=== PATIENT | female | born 1965 | race Caucasian/White ===

== ENCOUNTER → 2016-02-23 | Outpatient (REF) | payer OTHER ==
[2016-02-23 08:22] LABS: ALBUMIN 3.5 GM/DL (3.2-5.2); ALBUMIN/GLOBULIN RATIO 1.13 (1.00-1.93); ALKALINE PHOSPHATASE 131 U/L (45-117); ALT/SGPT 68 U/L (12-78); ANION GAP 7 MEQ/L (8-16); AST/SGOT 23 U/L (15-37); BILIRUBIN,TOTAL 0.5 MG/DL (0.2-1.0); BLOOD UREA NITROGEN 18 MG/DL (7-18); CALCIUM LEVEL 8.5 MG/DL (8.5-10.1); CARBON DIOXIDE LEVEL 28 MEQ/L (21-32); CHLORIDE LEVEL 105 MEQ/L (98-107); CREATININE FOR GFR 0.47 MG/DL (0.55-1.02); GLOMERULAR FILTRATION RATE > 60.0 (>51); GLUCOSE, FASTING 89 MG/DL (70-105); POTASSIUM SERUM 4.2 MEQ/L (3.5-5.1); SODIUM LEVEL 140 MEQ/L (136-145); TOTAL PROTEIN 6.6 GM/DL (6.4-8.2)
[2016-02-23 09:16] LABS: WHITE BLOOD COUNT 6.8 K/mm3 (4.0-10.0)
[2016-02-23 09:17] LABS: BASO # 0.1 K/mm3 (0.0-0.2); BASO % 1.4 % (0.0-1.0); EOS # 0.1 K/mm3 (0.0-0.50); LARGE UNSTAINED CELL # 0.2 K/mm3 (0.0-0.4); LARGE UNSTAINED CELL % 2.2 % (0.0-4.0); LYMPH # 2.7 K/mm3 (1.5-4.5); LYMPH % 39.3 % (24.0-44.0); MEAN CORPUSCULAR HGB CONC 32.9 g/dl (32.0-36.5); MONO # 0.7 K/mm3 (0.0-0.8); MONO % 10.2 % (0.0-5.0); NEUTROPHILS # 3.1 K/mm3 (1.8-7.7); NEUTROPHILS % 44.9 % (36.0-66.0); PLATELET COUNT, AUTOMATED 141 k/mm3 (150-450); RED CELL DISTRIBUTION WIDTH 13.8 % (11.5-14.5)
[2016-02-23 11:15] LABS: ERYTHROCYTE SEDIMENTATION RATE 16 mm/hr (0-30)
== END ==
LOC: M LAB REF 08:03
PROVIDERS: ATTEND Internal Medicine Infectious Disease
DX: A41.9 Sepsis, unspecified organism (principal)

== ENCOUNTER → 2016-03-01 | Outpatient (REF) | payer OTHER ==
[2016-03-01 10:46] LABS: BASO % 0.3 % (0.0-1.0); EOS # 0.2 K/mm3 (0.0-0.50); EOS % 3.3 % (0.0-3.0); LARGE UNSTAINED CELL # 0.2 K/mm3 (0.0-0.4); LARGE UNSTAINED CELL % 3.3 % (0.0-4.0); LYMPH # 1.8 K/mm3 (1.5-4.5); LYMPH % 34.2 % (24.0-44.0); MEAN CORPUSCULAR HEMOGLOBIN 29.7 pg (27.0-33.0); MEAN CORPUSCULAR HGB CONC 34.3 g/dl (32.0-36.5); MEAN CORPUSCULAR VOLUME 86.6 fl (80.0-96.0); MONO # 0.6 K/mm3 (0.0-0.8); MONO % 12.3 % (0.0-5.0); NEUTROPHILS # 2.4 K/mm3 (1.8-7.7); NEUTROPHILS % 46.7 % (36.0-66.0); PLATELET COUNT, AUTOMATED 122 k/mm3 (150-450); RED CELL DISTRIBUTION WIDTH 12.7 % (11.5-14.5); WHITE BLOOD COUNT 5.2 K/mm3 (4.0-10.0)
[2016-03-01 11:39] LABS: ERYTHROCYTE SEDIMENTATION RATE 29 mm/hr (0-30)
[2016-03-01 11:55] LABS: ALBUMIN 3.3 GM/DL (3.2-5.2); ALBUMIN/GLOBULIN RATIO 1.14 (1.00-1.93); ALKALINE PHOSPHATASE 123 U/L (45-117); ALT/SGPT 59 U/L (12-78); ANION GAP 8 MEQ/L (8-16); AST/SGOT 35 U/L (15-37); BILIRUBIN,TOTAL 0.4 MG/DL (0.2-1.0); BLOOD UREA NITROGEN 15 MG/DL (7-18); CALCIUM LEVEL 8.8 MG/DL (8.5-10.1); CARBON DIOXIDE LEVEL 29 MEQ/L (21-32); CHLORIDE LEVEL 105 MEQ/L (98-107); CREATININE FOR GFR 0.47 MG/DL (0.55-1.02); GLOMERULAR FILTRATION RATE > 60.0 (>51); GLUCOSE, FASTING 93 MG/DL (70-105); POTASSIUM SERUM 3.9 MEQ/L (3.5-5.1); SODIUM LEVEL 142 MEQ/L (136-145); TOTAL PROTEIN 6.2 GM/DL (6.4-8.2)
== END ==
LOC: M LAB REF 10:35
PROVIDERS: ATTEND Internal Medicine
DX: D83.9 Common variable immunodeficiency, unspecified (principal); Z79.2 Long term (current) use of antibiotics; M32.9 Systemic lupus erythematosus, unspecified

== ENCOUNTER → 2016-03-05 | Outpatient (REF) | payer OTHER ==
[2016-03-05 12:19] LABS: BASO # 0.1 K/mm3 (0.0-0.2); BASO % 1.1 % (0.0-1.0); EOS # 0.2 K/mm3 (0.0-0.50); EOS % 2.9 % (0.0-3.0); LARGE UNSTAINED CELL # 0.1 K/mm3 (0.0-0.4); LARGE UNSTAINED CELL % 1.8 % (0.0-4.0); LYMPH # 1.5 K/mm3 (1.5-4.5); LYMPH % 20.5 % (24.0-44.0); MEAN CORPUSCULAR HEMOGLOBIN 28.8 pg (27.0-33.0); MEAN CORPUSCULAR VOLUME 87.4 fl (80.0-96.0); MONO # 0.7 K/mm3 (0.0-0.8); MONO % 10.7 % (0.0-5.0); NEUTROPHILS # 4.2 K/mm3 (1.8-7.7); PLATELET COUNT, AUTOMATED 143 k/mm3 (150-450); RED CELL DISTRIBUTION WIDTH 13.6 % (11.5-14.5); WHITE BLOOD COUNT 6.6 K/mm3 (4.0-10.0)
[2016-03-05 12:42] LABS: ANION GAP 8 MEQ/L (8-16); BLOOD UREA NITROGEN 14 MG/DL (7-18); CALCIUM LEVEL 8.9 MG/DL (8.5-10.1); CARBON DIOXIDE LEVEL 27 MEQ/L (21-32); CHLORIDE LEVEL 107 MEQ/L (98-107); CREATININE FOR GFR 0.46 MG/DL (0.55-1.02); GLOMERULAR FILTRATION RATE > 60.0 (>51); GLUCOSE, FASTING 80 MG/DL (70-105); SODIUM LEVEL 142 MEQ/L (136-145)
[2016-03-05 13:33] LABS: ERYTHROCYTE SEDIMENTATION RATE 28 mm/hr (0-30)
== END ==
LOC: M LAB REF 11:47
PROVIDERS: ATTEND Internal Medicine Infectious Disease
DX: M86.18 Other acute osteomyelitis, other site (principal)

== ENCOUNTER → 2016-03-05 | Outpatient (CLI) | payer OTHER ==
--- NOTE | 2016-03-05 15:02 | REP ---
RIGHT STERNOCLAVICULAR JOINT ULTRASOUND: Real-time sonographic evaluation of the right sternoclavicular joint performed. Comparison made with prior study of 01/07/2016. There is no change in the somewhat complex fluid at the right sternoclavicular joint. The amount of fluid appears unchanged. IMPRESSION: No change in fluid within the right sternoclavicular joint compared to the prior exam of 01/07/2016. Signed by Elliott Milligan MD 03/05/2016 04:29 P
== END ==
LOC: M RAD 13:40
PROVIDERS: ATTEND Internal Medicine Infectious Disease
DX: M86.9 Osteomyelitis, unspecified (principal)

== ENCOUNTER → 2016-03-11 | Outpatient (CLI) | payer OTHER ==
[~2016-03-11] MED LIST: ALBU17IN2 INH; ARMO90TA PO; BENA25CA4 PO; CALC1TAB21 PO; CELE-19 PO; COLC1TAB5 PO; DALI1TAB2 PO; LEVA12INH INH; LIDOCAINE 1% MDV 20ML VIAL As Ordered ONE; METH8TAB4 PO; MYCO1TAB2 PO; PANT40TA2 PO; PLAQUENIL PO; PROBCAP4 PO; PROP1TAB29 PO; SIME1CAP PO; SUMA50TA2 PO; VANC10005 IV; VITA200016 PO; ZOFR20TA PO; ZYRT10CA PO; [UNRECOGNIZED DRUG - CODE] SC; [UNRECOGNIZED DRUG - OTHER] PO
--- NOTE | 2016-03-11 18:43 | REP ---
ULTRASOUND GUIDED RIGHT STERNOCLAVICULAR JOINT ASPIRATION: The procedure was performed under the direct supervision of Dr. Guevara. The patient has a history of somewhat complex fluid at the right sternoclavicular joint seen on a previous ultrasound dated 03/05/2016. The risks and benefits of the procedure were explained to the patient and informed consent was obtained. The right sternoclavicular joints was localized using ultrasound guidance. The skin was prepped and draped in a sterile fashion. 1% Xylocaine was used as a local anesthetic. Using ultrasound guidance an #18-gauge needle was inserted and then advanced into the joint. Only a scant amount of aspirate was obtained and sent to the lab. The patient tolerated the procedure well and there were no immediate complications. After the appropriate amount of monitored convalesce the patient was discharged from the department. Reviewed by JOAO Riley 03/12/2016 01:49 PEdited and Signed by Porfirio Guevara MD 03/12/2016 07:22 P
== END ==
LOC: M RADPRO 12:27
PROVIDERS: ATTEND Internal Medicine Infectious Disease
DX: M86.18 Other acute osteomyelitis, other site (principal); Z88.1 Allergy status to other antibiotic agents; Z88.5 Allergy status to narcotic agent; Z79.51 Long term (current) use of inhaled steroids; Z79.899 Other long term (current) drug therapy

== ENCOUNTER → 2016-03-11 | Outpatient (REF) | payer OTHER ==
[~2016-03-11] MED LIST changes: -LIDOCAINE 1% MDV 20ML VIAL As Ordered ONE
[2016-03-11 10:08] LABS: BASO % 0.4 % (0.0-1.0); EOS # 0.2 K/mm3 (0.0-0.50); EOS % 2.5 % (0.0-3.0); LARGE UNSTAINED CELL # 0.1 K/mm3 (0.0-0.4); LARGE UNSTAINED CELL % 2.3 % (0.0-4.0); LYMPH # 1.1 K/mm3 (1.5-4.5); LYMPH % 17.9 % (24.0-44.0); MEAN CORPUSCULAR HGB CONC 32.6 g/dl (32.0-36.5); MEAN CORPUSCULAR VOLUME 88.7 fl (80.0-96.0); MONO # 0.6 K/mm3 (0.0-0.8); MONO % 10.1 % (0.0-5.0); NEUTROPHILS # 4.2 K/mm3 (1.8-7.7); NEUTROPHILS % 66.8 % (36.0-66.0); PLATELET COUNT, AUTOMATED 115 k/mm3 (150-450); RED CELL DISTRIBUTION WIDTH 12.5 % (11.5-14.5); WHITE BLOOD COUNT 6.2 K/mm3 (4.0-10.0)
[2016-03-11 10:31] LABS: ANION GAP 10 MEQ/L (8-16); BLOOD UREA NITROGEN 13 MG/DL (7-18); CALCIUM LEVEL 8.5 MG/DL (8.5-10.1); CARBON DIOXIDE LEVEL 29 MEQ/L (21-32); CHLORIDE LEVEL 105 MEQ/L (98-107); CREATININE FOR GFR 0.61 MG/DL (0.55-1.02); GLOMERULAR FILTRATION RATE > 60.0 (>51); GLUCOSE, FASTING 92 MG/DL (70-105); POTASSIUM SERUM 3.8 MEQ/L (3.5-5.1); SODIUM LEVEL 144 MEQ/L (136-145)
[2016-03-11 11:09] LABS: ERYTHROCYTE SEDIMENTATION RATE 31 mm/hr (0-30)
== END ==
LOC: M SHH 09:44
PROVIDERS: ATTEND Internal Medicine Infectious Disease
DX: M86.18 Other acute osteomyelitis, other site (principal)

== ENCOUNTER 2016-03-16 07:34 | Outpatient (CLI) | payer OTHER ==
[~2016-03-16] VITALS: Ht 162.6 cm; Wt 59.5 kg
[2016-03-16] MEDS ORDERED: SODIUM CHLORIDE 0.9% INJ 10 ML SYR IV PRN (07:45)
[2016-03-16] MEDS ORDERED: CEFTAROLINE FOSAMIL 600 MG in D5W MINI-BAG PLUS 50 ML IV ONE (08:00)
[2016-03-16 08:18] LABS: MEAN CORPUSCULAR HEMOGLOBIN 29.3 pg (27.0-33.0); MEAN CORPUSCULAR VOLUME 88.9 fl (80.0-96.0); RED CELL DISTRIBUTION WIDTH 13.2 % (11.5-14.5); WHITE BLOOD COUNT 5.8 K/mm3 (4.0-10.0)
[2016-03-16 08:36] LABS: ANION GAP 9 MEQ/L (8-16); BLOOD UREA NITROGEN 14 MG/DL (7-18); CALCIUM LEVEL 8.5 MG/DL (8.5-10.1); CARBON DIOXIDE LEVEL 28 MEQ/L (21-32); CHLORIDE LEVEL 106 MEQ/L (98-107); CREATININE FOR GFR 0.62 MG/DL (0.55-1.02); GLOMERULAR FILTRATION RATE > 60.0 (>51); GLUCOSE, FASTING 114 MG/DL (70-105); POTASSIUM SERUM 3.9 MEQ/L (3.5-5.1); SODIUM LEVEL 143 MEQ/L (136-145)
[2016-03-16] MEDS ORDERED: SODIUM CHLORIDE 0.9% INJ 10 ML SYR IV SCH (18:00)
== END 2016-03-16 09:45 | disposition home or self-care (01) ==
LOC: M INFU 07:34
PROVIDERS: ATTEND Internal Medicine Infectious Disease
DX: M86.18 Other acute osteomyelitis, other site (principal); D83.9 Common variable immunodeficiency, unspecified; M32.9 Systemic lupus erythematosus, unspecified; J44.9 Chronic obstructive pulmonary disease, unspecified; Z79.899 Other long term (current) drug therapy; Z79.52 Long term (current) use of systemic steroids; Z88.1 Allergy status to other antibiotic agents; Z88.8 Allergy status to other drugs, medicaments and biological substances

== ENCOUNTER → 2016-03-23 | Outpatient (REF) | payer OTHER ==
[2016-03-23 12:12] LABS: EOS # 0.2 K/mm3 (0.0-0.50); EOS % 4.2 % (0.0-3.0); LARGE UNSTAINED CELL # 0.2 K/mm3 (0.0-0.4); LARGE UNSTAINED CELL % 4.7 % (0.0-4.0); LYMPH # 1.6 K/mm3 (1.5-4.5); LYMPH % 31.2 % (24.0-44.0); MEAN CORPUSCULAR HEMOGLOBIN 29.6 pg (27.0-33.0); MEAN CORPUSCULAR HGB CONC 33.1 g/dl (32.0-36.5); MEAN CORPUSCULAR VOLUME 89.4 fl (80.0-96.0); MONO # 0.6 K/mm3 (0.0-0.8); NEUTROPHILS # 2.4 K/mm3 (1.8-7.7); NEUTROPHILS % 47.8 % (36.0-66.0); PLATELET COUNT, AUTOMATED 183 k/mm3 (150-450); RED CELL DISTRIBUTION WIDTH 12.7 % (11.5-14.5)
[2016-03-23 13:19] LABS: ERYTHROCYTE SEDIMENTATION RATE 13 mm/hr (0-30)
[2016-03-23 14:33] LABS: ALBUMIN 3.3 GM/DL (3.2-5.2); ALBUMIN/GLOBULIN RATIO 1.18 (1.00-1.93); ALKALINE PHOSPHATASE 123 U/L (45-117); ALT/SGPT 61 U/L (12-78); ANION GAP 7 MEQ/L (8-16); AST/SGOT 33 U/L (15-37); BILIRUBIN,TOTAL 0.4 MG/DL (0.2-1.0); BLOOD UREA NITROGEN 19 MG/DL (7-18); CALCIUM LEVEL 8.7 MG/DL (8.5-10.1); CARBON DIOXIDE LEVEL 28 MEQ/L (21-32); CHLORIDE LEVEL 105 MEQ/L (98-107); CREATININE FOR GFR 0.74 MG/DL (0.55-1.02); GLOMERULAR FILTRATION RATE > 60.0 (>51); GLUCOSE, FASTING 95 MG/DL (70-105); POTASSIUM SERUM 4.3 MEQ/L (3.5-5.1); SODIUM LEVEL 140 MEQ/L (136-145); TOTAL PROTEIN 6.1 GM/DL (6.4-8.2)
== END ==
LOC: M SHH 11:28
PROVIDERS: ATTEND Internal Medicine Infectious Disease
DX: M86.18 Other acute osteomyelitis, other site (principal); D83.9 Common variable immunodeficiency, unspecified; Z79.2 Long term (current) use of antibiotics

== ENCOUNTER → 2016-03-31 | Outpatient (REF) | payer OTHER ==
[2016-03-31 15:36] LABS: BASO # 0.1 K/mm3 (0.0-0.2); BASO % 1.3 % (0.0-1.0); EOS # 0.2 K/mm3 (0.0-0.50); EOS % 4.3 % (0.0-3.0); LARGE UNSTAINED CELL # 0.2 K/mm3 (0.0-0.4); LARGE UNSTAINED CELL % 3.6 % (0.0-4.0); LYMPH # 1.5 K/mm3 (1.5-4.5); LYMPH % 34.8 % (24.0-44.0); MEAN CORPUSCULAR HEMOGLOBIN 29.4 pg (27.0-33.0); MEAN CORPUSCULAR HGB CONC 31.9 g/dl (32.0-36.5); MEAN CORPUSCULAR VOLUME 92.2 fl (80.0-96.0); MONO # 0.6 K/mm3 (0.0-0.8); MONO % 13.2 % (0.0-5.0); NEUTROPHILS # 1.9 K/mm3 (1.8-7.7); NEUTROPHILS % 42.8 % (36.0-66.0); PLATELET COUNT, AUTOMATED 135 k/mm3 (150-450); RED CELL DISTRIBUTION WIDTH 12.4 % (11.5-14.5); WHITE BLOOD COUNT 4.4 K/mm3 (4.0-10.0)
[2016-03-31 15:46] LABS: ANION GAP 9 MEQ/L (8-16); BLOOD UREA NITROGEN 17 MG/DL (7-18); CALCIUM LEVEL 8.6 MG/DL (8.5-10.1); CARBON DIOXIDE LEVEL 28 MEQ/L (21-32); CHLORIDE LEVEL 103 MEQ/L (98-107); CREATININE FOR GFR 0.83 MG/DL (0.55-1.02); GLOMERULAR FILTRATION RATE > 60.0 (>51); GLUCOSE, FASTING 96 MG/DL (70-105); POTASSIUM SERUM 3.6 MEQ/L (3.5-5.1); SODIUM LEVEL 140 MEQ/L (136-145)
[2016-03-31 15:59] LABS: ERYTHROCYTE SEDIMENTATION RATE 14 mm/hr (0-30)
== END ==
LOC: M SHH 15:22
PROVIDERS: ATTEND Internal Medicine Infectious Disease
DX: D83.9 Common variable immunodeficiency, unspecified (principal); Z79.2 Long term (current) use of antibiotics; M86.18 Other acute osteomyelitis, other site

== ENCOUNTER → 2016-05-25 | Outpatient (CLI) | payer OTHER ==
[2016-05-25 17:52] LABS: FOLLICLE STIMULATING HORMONE 36.8 mIU/mL; LUTEINIZING HORMONE 46.6 mIU/mL
== END ==
LOC: M SMT 14:03
PROVIDERS: ATTEND Specialist
DX: Z12.4 Encounter for screening for malignant neoplasm of cervix (principal); N91.1 Secondary amenorrhea
CPT/HCPCS: 36415; 83001; 83002; G0123

== ENCOUNTER 2016-06-03 10:31 | Emergency (ER) | payer OTHER ==
[~2016-06-03] VITALS: Ht 165.1 cm; Wt 56.7 kg
[2016-06-03] MEDS ORDERED: ONDANSETRON 4 MG ORAL DISINTEGRATING TAB (S0181) PO ONE (13:15)
[2016-06-03] MEDS ORDERED: ACETAMINOPHEN 325 MG TAB PO ONE (13:15)
--- NOTE | 2016-06-03 13:55 | REP ---
CT Head without contrast HISTORY: Trauma COMPARISON: 02/07/2010 There is no intraparenchymal hemorrhage, acute infarct, mass or midline shift. The ventricular system is normal in appearance. There is no extra cerebral collection. There is no fracture. The visualized sinuses are clear. IMPRESSION: There is no intracranial lesion. Signed by Rodrigo Jimenez MD 06/03/2016 01:47 P
--- NOTE | 2016-06-03 14:11 | REP ---
CT CERVICAL SPINE WITHOUT CONTRAST: HISTORY: Trauma. There is no acute fracture or subluxation. Disc bulges are present at the C3-4 through C5-6 levels. There is minimal narrowing of the spinal canal. The neural foramina are patent. The intervertebral discs are normal in height. IMPRESSION: 1. There is no acute fracture or subluxation. 2. There is cervical spondylosis at the C3-4 through C5-6 levels. Signed by Rodrigo Jimenez MD 06/03/2016 02:11 P
[2016-06-03] MEDS ORDERED: ZANA4TAB PO (14:23)
[2016-06-03] MEDS ORDERED: ZOFR4TAB3 PO (14:23)
--- NOTE | 2016-06-03 14:24 | REP ---
LEFT HAND, FOUR VIEWS: There is no evidence of an acute fracture, dislocation or intrinsic bone disease. IMPRESSION: No fracture or dislocation. Signed by Elliott Milligan MD 06/03/2016 04:51 P
[2016-06-03] MEDS ORDERED: PERC5TAB6 PO (14:30)
[2016-06-03 14:41] VITALS: BP 125/68
== END 2016-06-03 14:42 | disposition home or self-care (01) ==
LOC: M ED 14:05
DX: R11.0 Nausea (principal); S60.222A Contusion of left hand, initial encounter; S80.02XA Contusion of left knee, initial encounter; S09.90XA Unspecified injury of head, initial encounter; M54.2 Cervicalgia; W07.XXXA Fall from chair, initial encounter; Y92.000 Kitchen of unspecified non-institutional (private) residence as the place of occurrence of the external cause; Y93.89 Activity, other specified; Y99.8 Other external cause status; M47.812 Spondylosis without myelopathy or radiculopathy, cervical region; Z79.899 Other long term (current) drug therapy; Z79.52 Long term (current) use of systemic steroids; Z88.1 Allergy status to other antibiotic agents; Z88.5 Allergy status to narcotic agent

== ENCOUNTER → 2016-07-23 | Outpatient (CLI) | payer OTHER ==
[~2016-07-23] MED LIST changes: +PERC5TAB6 PO; +ZANA4TAB PO; +ZOFR4TAB3 PO
--- NOTE | 2016-07-23 10:23 | REPMRS ---
Patient History The patient states she had a clinical breast exam in Patient is postmenopausal. No known family history of cancer. Digital Woman Screen Mammo: July 23, 2016 - Exam #: [id number] Bilateral CC and MLO view(s) were taken. Technologist: Yenny Law, Technologist Prior study comparison: January 16, 2015, digital woman screen mammo performed at [facility]. January 10, 2014, digital woman screen mammo performed at [facility]. FINDINGS: The breast tissue is heterogeneously dense. This may lower the sensitivity of mammography. There is a fairly symmetric fibroglandular pattern in both breasts. There has been no interval development of masses, areas of architectural distortion or clusters of microcalcifications typical of malignancy. ASSESSMENT: BI-RADS/ACR category 2 mammogram. Benign finding(s). Recommendation Routine screening mammogram of both breasts in 1 year (for women over age 40). This mammogram was interpreted with the aid of an FDA-approved computer-aided dectection system. Electronically Signed By: Elliott Milligan MD 07/23/16 [id number]
== END ==
LOC: M WHC 09:37
PROVIDERS: ATTEND Specialist
DX: Z12.31 Encounter for screening mammogram for malignant neoplasm of breast (principal)

== ENCOUNTER 2016-08-11 09:45 | Emergency (ER) | payer OTHER ==
[~2016-08-11] VITALS: Ht 165.1 cm; Wt 130.0 kg
[~2016-08-11 09:45] MED LIST changes: -CELE-19 PO; +CELE1CAP4 PO; +COLC1TAB14 PO; -COLC1TAB5 PO; +PERC5TAB12 PO; -PERC5TAB6 PO; +[UNRECOGNIZED DRUG - CODE] PO; -[UNRECOGNIZED DRUG - OTHER] PO
[2016-08-11] MEDS ORDERED: METH4TAB28 (10:04)
[2016-08-11] MEDS ORDERED: MYCO1TAB2 (10:04)
[2016-08-11] MEDS ORDERED: ANEXSIA, NORCO 7.5MG/325MG TABLET(HYDROCODONE/APAP) PO ONE (10:15)
--- NOTE | 2016-08-11 10:51 | REP ---
Clinical: Trauma. Fall. Findings: Very subtle air space disease in the posterior left lower lobe should be correlated clinically and may reflect trace pulmonary contusions. Remainder of the bilateral lung sol are clear without consolidation, pleural effusion or pneumothorax. No significant pulmonary nodule or mass lesion identified. The tracheobronchial tree is patent. The mediastinum demonstrates normal thoracic aorta, heart and pericardium. Findings suggest prior atrial septal repair. Surrounding musculoskeletal structures are intact without obvious acute fracture or injury. Impression: Very subtle air space disease in the left lower lobe may reflect trace contusions related to trauma or mild infiltrate. Signed by Bienvenido Tompkins MD 08/11/2016 10:42 A
[2016-08-11 11:15] VITALS: BP 135/89
--- NOTE | 2016-08-11 11:18 | REP ---
CT THORACIC SPINE WITHOUT CONTRAST: HISTORY: Fall. There is no acute fracture or subluxation. There is no definite disc bulge or herniation. The spinal canal and neural foramina are patent. The intervertebral discs are normal in height. IMPRESSION: There is no acute fracture or subluxation. Signed by Rodrigo Jimenez MD 08/11/2016 11:23 A
[2016-08-11] MEDS ORDERED: NORCOTAB PO (11:26)
== END 2016-08-11 11:32 | disposition home or self-care (01) ==
LOC: M ED 09:45
DX: M54.9 Dorsalgia, unspecified (principal); S20.212A Contusion of left front wall of thorax, initial encounter; W17.89XA Other fall from one level to another, initial encounter; Y92.018 Other place in single-family (private) house as the place of occurrence of the external cause; Y93.89 Activity, other specified; Y99.8 Other external cause status; R06.02 Shortness of breath; E10.9 Type 1 diabetes mellitus without complications; I10 Essential (primary) hypertension; J45.909 Unspecified asthma, uncomplicated; G43.909 Migraine, unspecified, not intractable, without status migrainosus; E07.9 Disorder of thyroid, unspecified; K21.9 Gastro-esophageal reflux disease without esophagitis; D80.3 Selective deficiency of immunoglobulin G [IgG] subclasses; Z79.899 Other long term (current) drug therapy; Z88.1 Allergy status to other antibiotic agents

== ENCOUNTER → 2016-08-13 | Outpatient (CLI) | payer OTHER ==
[~2016-08-13] MED LIST changes: +METH4TAB28; +MYCO1TAB2; +NORCOTAB PO
--- NOTE | 2016-08-13 18:09 | REP ---
Clinical: Trauma. Technique: Frontal view of the chest with multiple views of the left hemithorax. Findings: Frontal view of the chest demonstrates no acute cardiopulmonary process. Multiple views of the left hemithorax demonstrates no obvious acute rib fracture or pathology. Impression: Normal left rib series Signed by Bienvenido Tompkins MD 08/13/2016 06:01 P
== END ==
LOC: M WUC 17:30
PROVIDERS: ATTEND Physician Assistant
DX: S20.212A Contusion of left front wall of thorax, initial encounter (principal); X58.XXXA Exposure to other specified factors, initial encounter; Y93.9 Activity, unspecified; Y92.9 Unspecified place or not applicable; Y99.8 Other external cause status

== ENCOUNTER → 2016-09-17 | Outpatient (CLI) | payer OTHER ==
[2016-09-17 18:47] LABS: ALBUMIN 3.9 GM/DL (3.2-5.2); ALBUMIN/GLOBULIN RATIO 1.22 (1.00-1.93); ALKALINE PHOSPHATASE 63 U/L (45-117); ALT/SGPT 58 U/L (12-78); ANION GAP 6 MEQ/L (8-16); AST/SGOT 38 U/L (15-37); BILIRUBIN,TOTAL 0.5 MG/DL (0.2-1.0); BLOOD UREA NITROGEN 20 MG/DL (7-18); CALCIUM LEVEL 9.6 MG/DL (8.5-10.1); CARBON DIOXIDE LEVEL 29 MEQ/L (21-32); CHLORIDE LEVEL 105 MEQ/L (98-107); CHOLESTEROL LEVEL 278 MG/DL (<200); CREATININE FOR GFR 0.68 MG/DL (0.55-1.02); FREE T4 0.61 NG/DL (0.76-1.46); GLOMERULAR FILTRATION RATE > 60.0 (>51); GLUCOSE, FASTING 93 MG/DL (70-105); POTASSIUM SERUM 4.5 MEQ/L (3.5-5.1); SODIUM LEVEL 140 MEQ/L (136-145); TOTAL PROTEIN 7.1 GM/DL (6.4-8.2); TRIGLYCERIDES LEVEL 56 MG/DL (<150)
[2016-09-17 19:01] LABS: BASO % 0.7 % (0.0-1.0); EOS # 0.2 K/mm3 (0.0-0.50); EOS % 3.1 % (0.0-3.0); LYMPH # 1.4 K/mm3 (1.5-4.5); MEAN CORPUSCULAR HGB CONC 32.9 g/dl (32.0-36.5); MEAN CORPUSCULAR VOLUME 94.3 fl (80.0-96.0); MONO # 0.3 K/mm3 (0.0-0.8); MONO % 6.2 % (0.0-5.0); NEUTROPHILS # 3.2 K/mm3 (1.8-7.7); NEUTROPHILS % 62.8 % (36.0-66.0); RED CELL DISTRIBUTION WIDTH 13.7 % (11.5-14.5); WHITE BLOOD COUNT 5.1 K/mm3 (4.0-10.0)
== END ==
LOC: M WUC 12:16
PROVIDERS: ATTEND Internal Medicine
DX: D83.9 Common variable immunodeficiency, unspecified (principal); E03.9 Hypothyroidism, unspecified; E78.00 Pure hypercholesterolemia, unspecified

== ENCOUNTER 2017-01-20 10:10 | Emergency (ER) | payer OTHER ==
[~2017-01-20] VITALS: Ht 165.1 cm; Wt 135.0 kg
[~2017-01-20 10:10] MED LIST changes: -KEFL500C17 PO; -PRED1TABL; -PRED20TA PO
[2017-01-20] MEDS ORDERED: PRED1TABL (10:23)
[2017-01-20] MEDS ORDERED: NS 1,000 ML IV ONE (10:45)
[2017-01-20] MEDS ORDERED: KETOROLAC 30 MG/ML VIAL (J1885) IV ONE (10:45)
[2017-01-20] MEDS ORDERED: ONDANSETRON 4MG/2ML VIAL (J2405) IV ONE (10:45)
[2017-01-20 11:13] LABS: BASO % 0.3 % (0.0-1.0); EOS # 0.1 10^3/uL (0.0-0.50); EOS % 0.8 % (0.0-3.0); IMMATURE GRANULOCYTE % 0.4 % (0-0); LYMPH # 0.6 10^3/uL (1.5-4.5); LYMPH % 6.4 % (24.0-44.0); MEAN CORPUSCULAR HEMOGLOBIN 29.3 pg (27.0-33.0); MEAN CORPUSCULAR HGB CONC 33.7 g/dl (32.0-36.5); MONO # 0.3 10^3/uL (0.0-0.8); MONO % 3.6 % (0.0-5.0); NEUTROPHILS # 8.1 10^3/uL (1.8-7.7); NEUTROPHILS % 88.5 % (36.0-66.0); PLATELET COUNT, AUTOMATED 118 10^3/uL (150-450); RED CELL DISTRIBUTION WIDTH 13.3 % (11.5-14.5); WHITE BLOOD COUNT 9.2 10^3/uL (4.0-10.0)
[2017-01-20 11:42] LABS: ANION GAP 9 MEQ/L (8-16); BLOOD UREA NITROGEN 11 MG/DL (7-18); CALCIUM LEVEL 9.1 MG/DL (8.5-10.1); CARBON DIOXIDE LEVEL 26 MEQ/L (21-32); CHLORIDE LEVEL 106 MEQ/L (98-107); CREATININE FOR GFR 0.68 MG/DL (0.55-1.02); GLOMERULAR FILTRATION RATE > 60.0 (>51); GLUCOSE, FASTING 99 MG/DL (70-105); POTASSIUM SERUM 3.9 MEQ/L (3.5-5.1); SODIUM LEVEL 141 MEQ/L (136-145)
[2017-01-20] MEDS ORDERED: ISOVUE-370 76% 100ML VIAL (Q9967) As Ordered ONE (11:48)
[2017-01-20] MEDS ORDERED: PRED20TA PO (13:06)
[2017-01-20] MEDS ORDERED: KEFL500C17 PO (13:06)
[2017-01-20 13:15] VITALS: BP 148/74
--- NOTE | 2017-01-20 13:26 | REP ---
Soft-tissue neck CT study with IV contrast: History: Sore throat. Swelling. Rule out abscess. CT contrast dose: 75 ml of intravenous Isovue 370. CT findings: Submandibular and parotid glands are normal and symmetric. There is some spray artifact from dental amalgam. There is, however, no evidence of retropharyngeal abscess. The retropharyngeal soft tissues do not appear swollen by CT. No parapharyngeal or tonsillar abscess appreciated. There are scattered normal-sized cervical lymph nodes. No evidence of adenopathy is seen. Thyroid lobes are normal and symmetric. The lung apices are clear. No bony destructive lesion is seen. No vascular abnormality is observed. Impression: Negative soft-tissue neck CT. No evidence of abscess or significant retropharyngeal soft tissue swelling. Signed by Porfirio Guevara MD 01/20/2017 02:24 P
== END 2017-01-20 13:26 | disposition home or self-care (01) ==
LOC: M ED 10:10
DX: K12.2 Cellulitis and abscess of mouth (principal); J45.909 Unspecified asthma, uncomplicated; K21.9 Gastro-esophageal reflux disease without esophagitis; E03.9 Hypothyroidism, unspecified; D80.3 Selective deficiency of immunoglobulin G [IgG] subclasses; Z79.899 Other long term (current) drug therapy; Z88.1 Allergy status to other antibiotic agents; Z87.891 Personal history of nicotine dependence
CPT/HCPCS: 70491; 80048; 85025; 87040; 87880; 96374; 96375; 99284; J1885; J2405; Q9967

== ENCOUNTER → 2017-01-20 | Outpatient (CLI) | payer OTHER ==
[~2017-01-20] MED LIST changes: +KEFL500C17 PO; +PRED1TABL; +PRED20TA PO
--- NOTE | 2017-01-20 10:01 | REP ---
Soft-tissue neck x-ray: Three views. History: Swollen throat. Acute pharyngitis. Findings: The epiglottis is normal. Glottic and subglottic airway is unremarkable. There does appear to be retropharyngeal soft tissue swelling on the lateral radiographs raising question of retropharyngeal cellulitis or abscess. No other abnormality. Impression: Retropharyngeal soft tissue swelling, question retropharyngeal cellulitis or abscess. Normal epiglottis. Signed by Porfirio Guevara MD 01/20/2017 10:57 A
== END ==
LOC: M WUC 09:09
PROVIDERS: ATTEND Physician Assistant
DX: J02.9 Acute pharyngitis, unspecified (principal); R13.11 Dysphagia, oral phase

== ENCOUNTER 2017-03-18 20:03 | Emergency (ER) | payer OTHER ==
[2017-03-18] MEDS: KETOROLAC 30 MG/ML VIAL (J1885) IV (21:33)
[2017-03-18] MEDS: METOCLOPRAMIDE INJ 10MG/2ML VIAL (J2765) IV (21:34)
[2017-03-18] MEDS: MORPHINE 4 MG/ML 1ML VIAL (J2270) IV (21:34)
== END 2017-03-18 23:02 | disposition home or self-care (01) ==
LOC: M ED 20:03
DX: G44.40 Drug-induced headache, not elsewhere classified, not intractable (principal); J45.909 Unspecified asthma, uncomplicated; D83.2 Common variable immunodeficiency with autoantibodies to B- or T-cells; Z79.899 Other long term (current) drug therapy; Z79.890 Hormone replacement therapy; Z88.1 Allergy status to other antibiotic agents
CPT/HCPCS: J2270

== ENCOUNTER → 2017-04-05 | Outpatient (CLI) | payer OTHER ==
[2017-04-05 20:35] LABS: IMMUNOGLOBULIN G 1030 MG/DL (681-1648)
== END ==
LOC: M WUC 11:57
DX: D83.9 Common variable immunodeficiency, unspecified (principal)

== ENCOUNTER → 2017-10-18 | Outpatient (CLI) | payer OTHER | LOC: M WUC 14:21 | DX: R06.2 Wheezing (principal); J45.21 Mild intermittent asthma with (acute) exacerbation | CPT/HCPCS: 71046 ==

== ENCOUNTER → 2018-02-28 | Outpatient (REF) | payer OTHER ==
[~2018-02-28] MED LIST changes: +KEFL500C17 PO; -PANT40TA2 PO; +PANT40TA3 PO; +PRED1TABL; +PRED20TA PO; -PROP1TAB29 PO; +PROP20TA72 PO; -ZOFR20TA PO; +ZOFR4TAB14 PO; +ZOFR4TAB16 PO; -ZOFR4TAB3 PO; +[UNRECOGNIZED DRUG - CODE] PO; -[UNRECOGNIZED DRUG - CODE] PO
== END ==
LOC: M LAB REF 19:10
PROVIDERS: ATTEND Physician Assistant
DX: J02.9 Acute pharyngitis, unspecified (principal)

== ENCOUNTER → 2018-05-29 | Outpatient (CLI) | payer OTHER ==
[~2018-05-29] MED LIST changes: +HYDR-3715 PO; -NORCOTAB PO
--- NOTE | 2018-05-29 16:24 | REP ---
Chest two views HISTORY: Cough Comparison: 10/18/2017 The lungs are clear. The heart is normal in size. The pulmonary vasculature is normal in appearance. The bony structure is intact. An atrial septal defect closure device is present. IMPRESSION: No acute disease. Electronically Signed by Rodrigo Jimenez MD 05/29/2018 04:15 P
[2018-05-29 19:58] LABS: BASO % 0.3 % (0.0-1.0); EOS % 0.3 % (0.0-3.0); HEMATOCRIT 40.6 % (36.0-47.0); HEMOGLOBIN 13.3 g/dl (12.0-15.5); LYMPH # 0.7 10^3/uL (1.5-4.5); LYMPH % 17.5 % (24.0-44.0); MEAN CORPUSCULAR HEMOGLOBIN 30.5 pg (27.0-33.0); MEAN CORPUSCULAR HGB CONC 32.8 g/dl (32.0-36.5); MEAN CORPUSCULAR VOLUME 93.1 fl (80.0-96.0); MONO # 0.4 10^3/uL (0.0-0.8); MONO % 10.4 % (0.0-5.0); NEUTROPHILS # 2.8 10^3/uL (1.8-7.7); NEUTROPHILS % 71.2 % (36.0-66.0); PLATELET COUNT, AUTOMATED 164 10^3/uL (150-450); RED BLOOD COUNT 4.36 10^6/uL (4.00-5.40); WHITE BLOOD COUNT 3.9 10^3/uL (4.0-10.0)
== END ==
LOC: M WUC 15:52
PROVIDERS: ATTEND Physician Assistant
DX: R05 Cough (principal); R09.1 Pleurisy

== ENCOUNTER → 2018-07-13 | Outpatient (REF) | payer OTHER | LOC: M LAB REF 10:42 | DX: R19.7 Diarrhea, unspecified (principal) ==

== ENCOUNTER → 2018-12-21 | Outpatient (REF) | payer OTHER ==
[2018-12-26 08:26] LABS: HPV HYBRID CAPTURE II Negative (Negative)
== END ==
LOC: M LAB REF 17:39
PROVIDERS: ATTEND Specialist
DX: Z12.4 Encounter for screening for malignant neoplasm of cervix (principal)

== ENCOUNTER 2019-02-01 13:59 | Inpatient (IN) | payer OTHER ==
[~2019-02-01] VITALS: Ht 165.1 cm; Wt 61.6 kg
[~2019-02-01 13:59] MED LIST changes: -METH4TAB28; +METH4TAB8
[2019-02-01 16:08] LABS: BASO % 0.2 % (0.0-1.0); HEMATOCRIT 37.5 % (36.0-47.0); HEMOGLOBIN 12.4 g/dl (12.0-15.5); LYMPH # 0.6 10^3/uL (1.5-5.0); MEAN CORPUSCULAR HEMOGLOBIN 30.5 pg (27.0-33.0); MEAN CORPUSCULAR HGB CONC 33.1 g/dl (32.0-36.5); MEAN CORPUSCULAR VOLUME 92.4 fl (80.0-96.0); MONO # 0.3 10^3/uL (0.0-0.8); MONO % 6.4 % (0.0-5.0); NEUTROPHILS # 3.2 10^3/uL (1.5-8.5); NEUTROPHILS % 78.2 % (36.0-66.0); PLATELET COUNT, AUTOMATED 173 10^3/uL (150-450); RED BLOOD COUNT 4.06 10^6/uL (4.00-5.40); WHITE BLOOD COUNT 4.1 10^3/uL (4.0-10.0)
[2019-02-01 16:30] LABS: ALBUMIN 3.9 GM/DL (3.2-5.2); ALT/SGPT 58 U/L (12-78); BILIRUBIN,DIRECT 0.2 MG/DL (0.0-0.2); BILIRUBIN,TOTAL 0.7 MG/DL (0.2-1.0); BLOOD UREA NITROGEN 14 MG/DL (7-18); CALCIUM LEVEL 9.6 MG/DL (8.5-10.1); CARBON DIOXIDE LEVEL 26 MEQ/L (21-32); CHLORIDE LEVEL 103 MEQ/L (98-107); CREATININE FOR GFR 0.56 MG/DL (0.55-1.30); GLOMERULAR FILTRATION RATE > 60.0 (>51); GLUCOSE, FASTING 117 MG/DL (70-100); LIPASE 99 U/L (73-393); POTASSIUM SERUM 4.1 MEQ/L (3.5-5.1); SODIUM LEVEL 137 MEQ/L (136-145); TOTAL PROTEIN 7.4 GM/DL (6.4-8.2)
[2019-02-01] MEDS ORDERED: ONDANSETRON 4MG/2ML VIAL (J2405) IV ONE (16:30)
[2019-02-01] MEDS ORDERED: NS 1,000 ML IV ONE (16:30)
[2019-02-01] MEDS ORDERED: MORPHINE 4 MG/ML 1ML VIAL/SYRINGE (J2270) IV ONE ×2 (16:30→17:15)
[2019-02-01 16:49] LABS: CK-MB VALUE MASS < 1.0 NG/ML (<3.6); CPK CREATINE PHOSPHOKINASE 62 U/L (26-192); MB/CK RELATIVE INDEX 1.61 (< OR =4); TROPONIN I < 0.02 NG/ML (< 0.10)
[2019-02-01] MEDS ORDERED: ISOVUE-370 76% 100ML VIAL (Q9967) As Ordered ONE (16:51)
--- NOTE | 2019-02-01 17:30 | REPVR ---
PROCEDURE INFORMATION: Exam: CT Abdomen And Pelvis Without Contrast Exam date and time: 02/01/2019 5:15 PM Age: 53 years old Clinical indication: Abdominal pain; Additional info: L flank pain TECHNIQUE: Imaging protocol: Computed tomography of the abdomen and pelvis without contrast. Radiation optimization: All CT scans at this facility use at least one of these dose optimization techniques: automated exposure control; mA and/or kV adjustment per patient size (includes targeted exams where dose is matched to clinical indication); or iterative reconstruction. COMPARISON: PELVIS NON-OB COMPLETE US 01/09/2014 9:44 AM FINDINGS: Liver: Normal. No mass. Gallbladder and bile ducts: There has been a cholecystectomy. Pancreas: Normal. No ductal dilation. Spleen: Normal. No splenomegaly. Adrenals: Normal. No mass. 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 Stomach and bowel: There are dilated loops of small bowel in the left side of the abdomen extending into the left upper quadrant measuring up to 3 cm without significant wall thickening. Finding may represent a localized ileus, early small bowel obstruction or regional enteritis (considered less likely in the absence of any significant wall thickening). Appendix: No evidence of appendicitis. Intraperitoneal space: Unremarkable. No free air. No significant fluid collection. Vasculature: The aorta demonstrates mild atherosclerotic calcification. Lymph nodes: Unremarkable. No enlarged lymph nodes. Bladder: Unremarkable as visualized. Reproductive: Unremarkable as visualized. Bones/joints: Unremarkable. No acute fracture. Soft tissues: Unremarkable. IMPRESSION: 1. There has been a cholecystectomy. 2. 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 3. Dilated loops of small bowel as described above may represent a early small bowel obstruction, ileus or less likely regional enteritis. Electronically signed by: Jean-Claude Llanes On 02/01/2019 17:30:34 PM
--- NOTE | 2019-02-01 17:35 | REPVR ---
PROCEDURE INFORMATION: Exam: CT Angiography Chest With Contrast Exam date and time: 02/01/2019 5:15 PM Age: 53 years old Clinical indication: Pain; Other: L flank; Additional info: L flank pain TECHNIQUE: Imaging protocol: Computed tomographic angiography of the chest with intravenous contrast. 3D rendering: MIP and/or 3D reconstructed images were created by the technologist. Radiation optimization: All CT scans at this facility use at least one of these dose optimization techniques: automated exposure control; mA and/or kV adjustment per patient size (includes targeted exams where dose is matched to clinical indication); or iterative reconstruction. Contrast material: ISOVUE 370; Contrast volume: 75 ml; Contrast route: IV; COMPARISON: CT Chest without contrast 08/11/2016 10:19 AM FINDINGS: Pulmonary arteries: Normal. No pulmonary emboli. Aorta: Unremarkable. No aortic aneurysm. No aortic dissection. Lungs: Unremarkable. No consolidation. No masses. Pleural space: Unremarkable. No pneumothorax. No pleural effusion. Heart: Unremarkable. No cardiomegaly. No pericardial effusion. Lymph nodes: Unremarkable. No enlarged lymph nodes. Bones/joints: Unremarkable. No acute fracture. Soft tissues: Unremarkable. IMPRESSION: No acute findings. Electronically signed by: Jean-Claude Llanes On 02/01/2019 17:34:37 PM
[2019-02-01] MEDS ORDERED: KETOROLAC 30 MG/ML VIAL (J1885) IV ONE (19:30)
[2019-02-01] MEDS ORDERED: DALI1TAB2 PO (20:22)
[2019-02-01] MEDS ORDERED: HYDR200T3 PO ×2 (20:22)
[2019-02-01] MEDS ORDERED: VITA200028 PO (20:22)
[2019-02-01] MEDS ORDERED: MYCO1TAB2 PO (20:22)
[2019-02-01] MEDS ORDERED: SIME80TA PO (20:22)
[2019-02-01] MEDS ORDERED: COLC1TAB14 PO (20:22)
[2019-02-01] MEDS ORDERED: SUMA100T2 PO (20:22)
[2019-02-01] MEDS ORDERED: PREG100CA PO (20:22)
[2019-02-01] MEDS ORDERED: PROAAER10 INH (20:22)
[2019-02-01] MEDS ORDERED: BENL200I SC (20:22)
[2019-02-01] MEDS ORDERED: THYR60TA PO (20:22)
[2019-02-01] MEDS ORDERED: [UNRECOGNIZED DRUG - CODE] SC (20:22)
[2019-02-01] MEDS ORDERED: CALC600T57 PO (20:22)
[2019-02-01] MEDS ORDERED: ACET-907 PO ×2 (20:22)
[2019-02-01] MEDS ORDERED: LEVA0.636 INH (20:22)
[2019-02-01] MEDS ORDERED: PANT-23 PO (20:22)
[2019-02-01] MEDS ORDERED: DIPH25CA32 PO (20:22)
[2019-02-01] MEDS ORDERED: REST0.05 OU (20:22)
[2019-02-01] MEDS ORDERED: ALL10TAB29 PO (20:22)
[2019-02-01] MEDS ORDERED: PROBCAP14 PO (20:22)
[2019-02-01] MEDS ORDERED: PROP20TA72 PO (20:22)
[2019-02-01] MEDS ORDERED: METH4TAB8 PO (20:22)
[2019-02-01] MEDS ORDERED: ONDA4TAB5 PO (20:22)
[2019-02-01] MEDS ORDERED: HYDR-3713 PO (20:22)
[2019-02-01] MEDS ORDERED: COLCHICINE 0.6 MG TAB PO PRN (21:00)
[2019-02-01] MEDS ORDERED: ACETAMINOPHEN TAB 650MG DOSE (2X325MG) PO PRN (21:00)
[2019-02-01] MEDS ORDERED: SUMAtriptan SUCCINATE 25 MG TAB PO PRN (21:00)
[2019-02-01] MEDS ORDERED: LEVALBUTEROL 1.25 MG/0.5 ML CONCENTRATE NEB INH PRN (21:00)
[2019-02-01] MEDS ORDERED: ALBUTEROL 90 MCG/ACT 8GM HFA INHALER INH PRN (21:00)
[2019-02-01] MEDS ORDERED: MYCOPHENOLATE MOFETIL 250 MG CAP (J7517) PO SCH (21:00)
[2019-02-01] MEDS ORDERED: SIMETHICONE 80 MG CHEW TAB PO PRN (21:00)
--- NOTE | 2019-02-01 21:11 | ECGEPIP ---
[facility] - ED Test Date: 2019-02-01 Pat Name: YENI PITTMAN Department: Room: - Gender: Female Air Director: : 1965 Requested By: LUKASZ aVlentine PA-C Order Number: [id number] Reading MD: Nick Patel Measurements Intervals [place] Rate: 65 P: 25 OR: 109 QRS: 61 QRSD: 78 T: 49 QT: 392 QTc: 409 Interpretive Statements SINUS RHYTHM WITH SINUS ARRHYTHMIA WITH SHORT OR INTERVAL NSTTW ABNORMALITIES NO PRIORS FOR COMPARISON Electronically Signed on 02-01-2019 21:11:28 EST by Nick Patel
[2019-02-01] MEDS ORDERED: PILL CUTTER 1 EACH XX PRN (21:30)
[2019-02-01 21:31] LABS: C REACTIVE PROTEIN QUANTITATIV < 0.30 MG/DL (0.00-0.30)
[2019-02-01 21:44] VITALS: BP 154/74
[2019-02-01] MEDS ORDERED: CEFEPIME HCL 1 GM in D5W MINI-BAG PLUS 50 ML IV SCH (22:00)
[2019-02-01] MEDS: HYDROXYCHLOROQUINE 200 MG TAB PO SCH (22:08)
[2019-02-01] MEDS: CETIRIZINE (ZyrTEC) 10 MG TAB PO SCH (22:08)
[2019-02-01] MEDS: PROPRANOLOL 20 MG TAB PO SCH (22:09)
[2019-02-01] MEDS: PANTOPRAZOLE 40MG TAB (PROTONIX) PO SCH (22:09)
[2019-02-01] MEDS: HEPARIN SOD (PORCINE) 5000 UNITS/ML VIAL SQ SCH (22:10)
[2019-02-01] MEDS: MORPHINE 2 MG/ML 1ML VIAL (J2270) IV PRN (22:10)
--- NOTE | 2019-02-01 23:48 | HPEPDOC ---
[facility] Medical History & Physical Date of Admission Feb 01, 2019 Date of Service: Feb 01, 2019 Attending Physician: NEISHA HOLLAND MD History and Physical CHIEF COMPLAINT: Left sided flank pain HISTORY OF PRESENT ILLNESS: Patient is a 53 year old female who presented to the [facility] ER with complaint of left sided worsening flank pain. Patient states that she has history significant for Systemic Lupus Erythematous, Common Variable Immunodeficiency Disorder, Ronda thyroiditis, and Hereditary Angioedema. She stated that 3 days ago she developed pain localized to her left side. At first she thought the pain was pleurisy related to her Lupus. She currently has Percocet available and stated that she took this for her pain however did not have any relief. Over the next, couple of days the patient continued to have pain. She denies any fevers, chills, nausea, or vomiting. She denies any dysuria or increased frequency although admitted to some urinary urgency. She admitted to a history of chronic diarrhea as well as right sided lymphadenopathy both of which she has been evaluated for outpatient. She stated that today she was having difficulty bearing the pain and decided to come to the ER. In the ER the patient was vitally stable. She was afebrile and without an elevation in her WBC. She received a CTA of her chest which did not demonstrate any acute findings. 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 Her imaging was otherwise negative. Hospitalist service was consulted for further evaluation and management PAST MEDICAL HISTORY: 1. Systemic Lupus Erythematosus on immunosuppression 2. Common Variable Immune Deficiency 3. Asthma 4. Ronda Thyroiditis 5. Hereditary Angioedema 6. Thromboembolic Stroke w/ history of PFO 7. 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 PFO repair 2. Cholecystectomy 3. Caesarean Section x3 4. Sinus Surgery x3 5. Lymph node biopsy SOCIAL HISTORY: Patient is a non-smoker. She denies alcohol use. She uses medical marijuana for her Lupus flares. She denies any recent travel history or sick contacts. She lives at home with her FAMILY HISTORY: Patients grandmother was a diabetic and had Ronda thyroiditis. Her mother and sister have a history of hereditary angioedema. She is not sure of her fathers medical history ALLERGIES: Please see below. REVIEW OF SYSTEMS: CONSTITUTIONAL: Denies fevers, chills, night-sweat, unintentional weight loss, or weight gain. HEENT: Denies changes in vision. Admits to left sided vestibular damage resulting in vertigo at times. Denies cough. Admits to right sided cervical lymphadenopathy CARDIOVASCULAR: Denies chest pain. Admits to sternal pain which is chronic. D enies palpitations or feelings of the heart racing RESPIRATORY: Denies shortness of breath. Admits to flank pain with deep inspiration. Denies cough. Denies wheezing. Denies sputum production GASTROINTESTINAL: Denies abdominal pain. Admits to chronic diarrhea. Admits to left sided flank pain without radiation. GENITOURINARY: Denies hematuria. Denies increased frequency. Admits to increased urgency. SKIN: Denies rashes or lesions MUSCULOSKELETAL: Admits to chronic arthralgia associated with her lupus NEUROLOGICAL: Admits to vertigo secondary to vestibular damage from her stroke. Denies changes in her speech or gait PSYCHIATRIC: Denies depression or anxiety ENDOCRINE: Denies heat intolerance or cold intolerance HEMATOLOGIC/LYMPHATIC: Denies any history of easy bruising or bleeding. Denies any history of DVT or pulmonary embolism HOME MEDICATIONS: Please see below. PHYSICAL EXAMINATION: VITAL SIGNS: Temperature 97.7, pulse 73, respiratory rate, 17, blood pressure 154\66, pulse oximetry, 99 % on room air. GENERAL APPEARANCE: Patient is awake, alert and oriented. She is not in acute distress. She is lying in bed on her right side. She appears uncomfortable. HEENT: Atraumatic, normocephalic. Eyes nonicteric. Trachea is midline. Right- sided superficial cervical and submandibular lymphadenopathy. No supraclavicular lymphadenopathy. No axillary lymphadenopathy CARDIOVASCULAR:. Normal S1, S2, regular rate and rhythm. No clicks, rubs or murmurs. LUNGS:. Clear vesicular breath sounds bilaterally. Respiratory effort is limited by pain on inspiration. No wheezes, rhonchi or rales. Symmetric chest expansion. ABDOMEN: Soft, nondistended, nontender, no rebound tenderness or guarding. Normoactive bowel sounds throughout., No palpable masses or hernias MUSCULOSKELETAL:. Examination of thoracic and lumbar spine does show no midline tenderness. There is minimal hypertonicity of the paraspinal muscles. There is tenderness overlying the patient's left flank. There is allodynia over the patient's left flank as well. There is a circumscribed erythematous area overlying the patient's left flank consistent with where she placed a heat pack. EXTREMITIES: No edema. Full and equal pulses bilateral upper lower extremities. NEUROLOGICAL: No focal neurological deficits. PSYCHIATRIC:. Mood and Affect appear appropriate. LABORATORY DATA: See below. IMAGING: PROCEDURE INFORMATION: Exam: CT Angiography Chest With Contrast Exam date and time: 02/01/2019 5:15 PM Age: 53 years old Clinical indication: Pain; Other: L flank; Additional info: L flank pain TECHNIQUE: Imaging protocol: Computed tomographic angiography of the chest with intravenous contrast. 3D rendering: MIP and/or 3D reconstructed images were created by the technologist. Radiation optimization: All CT scans at this facility use at least one of these dose optimization techniques: automated exposure control; mA and/or kV adjustment per patient size (includes targeted exams where dose is matched to clinical indication); or iterative reconstruction. Contrast material: ISOVUE 370; Contrast volume: 75 ml; Contrast route: IV; COMPARISON: CT Chest without contrast 08/11/2016 10:19 AM FINDINGS: Pulmonary arteries: Normal. No pulmonary emboli. Aorta: Unremarkable. No aortic aneurysm. No aortic dissection. Lungs: Unremarkable. No consolidation. No masses. Pleural space: Unremarkable. No pneumothorax. No pleural effusion. Heart: Unremarkable. No cardiomegaly. No pericardial effusion. Lymph nodes: Unremarkable. No enlarged lymph nodes. Bones/joints: Unremarkable. No acute fracture. Soft tissues: Unremarkable. IMPRESSION: No acute findings. Electronically signed by: Jean-Claude Urena On 02/01/2019 17:34:37 PM PROCEDURE INFORMATION: Exam: CT Abdomen And Pelvis Without Contrast Exam date and time: 02/01/2019 5:15 PM Age: 53 years old Clinical indication: Abdominal pain; Additional info: L flank pain TECHNIQUE: Imaging protocol: Computed tomography of the abdomen and pelvis without contrast. Radiation optimization: All CT scans at this facility use at least one of these dose optimization techniques: automated exposure control; mA and/or kV adjustment per patient size (includes targeted exams where dose is matched to clinical indication); or iterative reconstruction. COMPARISON: PELVIS NON-OB COMPLETE US 01/09/2014 9:44 AM FINDINGS: Liver: Normal. No mass. Gallbladder and bile ducts: There has been a cholecystectomy. Pancreas: Normal. No ductal dilation. Spleen: Normal. No splenomegaly. Adrenals: Normal. No mass. 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 Stomach and bowel: There are dilated loops of small bowel in the left side of the abdomen extending into the left upper quadrant measuring up to 3 cm without significant wall thickening. Finding may represent a localized ileus, early small bowel obstruction or regional enteritis (considered less likely in the absence of any significant wall thickening). Appendix: No evidence of appendicitis. Intraperitoneal space: Unremarkable. No free air. No significant fluid collection. Vasculature: The aorta demonstrates mild atherosclerotic calcification. Lymph nodes: Unremarkable. No enlarged lymph nodes. Bladder: Unremarkable as visualized. Reproductive: Unremarkable as visualized. Bones/joints: Unremarkable. No acute fracture. Soft tissues: Unremarkable. IMPRESSION: 1. There has been a cholecystectomy. 2. 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 3. Dilated loops of small bowel as described above may represent a early small bowel obstruction, ileus or less likely regional enteritis. Electronically signed by: Jean-Claude Urena On 02/01/2019 17:30:34 PM DD: JEAN-CLAUDE URENA MD 02/01/19 [id number] MICROBIOLOGY: Please see below. ASSESSMENT: Patient is a 53-year-old female with a past medical history significant for systemic lupus erythematosus, common immune variable immunodeficiency, asthma, Ronda's thyroiditis and hereditary angioedema presented to the [facility] emergency department with complaint of intractable back pain for 3 days duration PLAN: 1. Intractable back pain -Patient is intractable back pain for [address] imaging did demonstrate a small angiomyolipoma on her left kidney, although this is likely not the cause of her pain. Her pain does appear to be somewhat neuropathic as even lightly touching the left flank creates discomfort and pain -Will continue with IV morphine and PO Percocet -Scheduled Lyrica for neuropathic pain 2. Urinary Urgency -Patient has complained of urinary urgency and left flank pain. U/A was negative. She does have a history of Rheumatologic disease on chronic immunosuppresion and is therefore at risk of infection. Will place patient on Cefepime. 3. Angiomyolipoma on CT imaging -Patient has a small [address] imaging. This is present on her left kidney and could cause her pain although seems unlikely. This is likely an incidental finding. Patient should follow-up with her PCP for serial imaging to assess growth 4. Systemic Lupus Erythematosus -Continue Plaquenil, methylprednisone, colchicine -Patient receives weekly infusions of Benlysta 5. Asthma -Continue with Xopenex and Albuterol HFA prn 6. Right sided Lymphadenopathy -Patient has right sided lymphadenopathy. She has been evaluated for this previously. She states this comes and goes usually on her right side. She has had a lymph node biopsy and resection in the past and was told that it was from her lupus 7. Diarrhea -Patient has chronic loose watery stools. She stated that she follows with a GI in [place], Dr. Wallace. She states that she was previously told that she had ulcerative colitis by a previous doctor however her current GI states that she does not have UC based on Colonoscopy and biopsies 8. DVT prophylaxis -Heparin SQ Vital Signs Vital Signs Date Time Temp Pulse Resp B/P (MAP) Pulse Ox O2 Delivery O2 Flow Rate FiO2 02/01/19 20:30 02/01/19 17:07 18 02/01/19 13:59 97.7 73 99 Room Air Laboratory Data Labs 24H Laboratory Tests 2 02/01/19 15:54: Immature Granulocyte % (Auto) 0.2, Neutrophils (%) (Auto) 78.2H, Lymphocytes (%) (Auto) 15.0L, Monocytes (%) (Auto) 6.4H, Eosinophils (%) (Auto) 0.0, Basophils (%) (Auto) 0.2, Neutrophils # (Auto) 3.2, Lymphocytes # (Auto) 0.6L, Monocytes # (Auto) 0.3, Eosinophils # (Auto) 0.0, Basophils # (Auto) 0.0, Nucleated Red Blood Cells % (auto) 0.0, Anion Gap 8, Glomerular Filtration Rate > 60.0, Calcium Level 9.6, Total Bilirubin 0.7, Direct Bilirubin 0.2, Aspartate Amino Transf (AST/SGOT) 30, Alanine Aminotransferase (ALT/SGPT) 58, Alkaline Phos phatase 102, Total Creatine Kinase 62, Creatine Kinase MB < 1.0, Creatine Kinase MB Relative Index 1.61, Troponin I < 0.02, Total Protein 7.4, Albumin 3.9, Albumin/Globulin Ratio 1.11, Lipase 99 02/01/19 16:17: Lactic Acid Level 0.9 02/01/19 18:55: Urine Color STRAW, Urine Appearance CLEAR, Urine pH 6.0, Urine Specific [place] 1.040, Urine Protein NEGATIVE, Urine Glucose (UA) NEGATIVE, Urine Ketones 1+H, Urine Blood NEGATIVE, Urine Nitrite NEGATIVE, Urine Bilirubin NEGATIVE, Urine Urobilinogen 0.2, Urine Leukocyte Esterase NEGATIVE, Urine WBC (Auto) 0, Urine RBC (Auto) 0, Urine Hyaline Casts (Auto) 0, Urine Bacteria (Auto) NEGATIVE, Urine Squamous Epithelial Cells 0, Urine Sperm (Auto) CBC/BMP Laboratory Tests 02/01/19 15:54 Home Medications Scheduled Acetaminophen (Tylenol) 325 Mg Tablet, 650 MG PO QWEEK TAKE BEFORE CUVITRU INFUSION ON THURSDAYS Belimumab (Benlysta) 200 Mg/1 Ml Auto.injct, 200 MG SC QWEEK CURRENTLY ON HOLD DUE TO INFECTION IN THE FALL - HAS NOT RESTARTED YET. Calcium Carbonate/Vitamin D3 (Calcium 600-Vit D3 200 Tablet) 1 Each Tablet, 1 TAB PO DAILY Cetirizine HCl (Cetirizine HCl) 10 Mg Tablet, 10 MG PO QHS Cyclosporine (Restasis) 0.05% Droperette, 1 DROP OU BID Diphenhydramine HCl (Diphenhydramine HCl) 25 Mg Capsule, 25 MG PO QWEEK TAKE BEFORE CUVITRU INFUSION ON THURSDAYS Ergocalciferol (Vitamin D2) (Vitamin D2) 2,000 Unit Tablet, 2,000 UNIT PO DAILY Hydroxychloroquine Sulfate (Hydroxychloroquine Sulfate) 200 Mg Tablet, 200 MG PO DAILY 200MG IN THE MORNING, 100MG QHS Hydroxychloroquine Sulfate (Hydroxychloroquine Sulfate) 200 Mg Tablet, 100 MG PO QHS Immun Glob G(IgG)/Gly/Iga Ov50 (Cuvitru 8 Gram/ 40 ml Vial) 8 Gm/40 Ml Vial, 8 GM SC QWEEK THURSDAYS - INFUSE OVER 8 HOURS Lactobacillus Acidophilus (Probiotic) 1 Each Capsule, 1 CAP PO DAILY Methylprednisolone (Methylprednisolone) 4 Mg Tablet, 8 MG PO DAILY TAPERS UP FOR LUPUS FLARE UP Mycophenolate Sodium (Mycophenolic Acid) 360 Mg Tablet.dr, 360 MG PO BID HAS BEEN ON HOLD DUE TO INFECTION IN THE FALL. HAS NOT RESTARTED YET Ondansetron HCl (Ondansetron HCl) 4 Mg Tablet, 4 MG PO QWEEK TAKE BEFORE CUVITRU INFUSION ON THURSDAYS Pantoprazole Sodium (Pantoprazole Sodium) 40 Mg Tablet.dr, 40 MG PO QHS Propranolol HCl (Propranolol HCl) 20 Mg Tablet, 20 MG PO BID Roflumilast (Daliresp) 500 Mcg Tablet, 500 MCG PO QHS Thyroid ([place] Thyroid) 60 Mg Tablet, 60 MG PO DAILY Scheduled PRN Acetaminophen (Tylenol) 325 Mg Tablet, 650 MG PO Q4H PRN for PAIN Albuterol Sulfate (Proair Hfa) 8.5 Gm Hfa.aer.ad, 2 PUFF INH Q6H PRN for SHORTNESS OF BREATH Colchicine (Colcrys) 0.6 Mg Tablet, 0.6 MG PO DAILY PRN for PLEURISY Hydrocodone/Acetaminophen (Hydrocodone-Acetamin 5-325 mg) 1 Each Tablet, 1 TAB PO Q6H PRN for PAIN Levalbuterol HCl (Levalbuterol HCl) 0.63 Mg/3 Ml Vial.neb, 0.63 MG INH Q8H PRN for SHORTNESS OF BREATH Pregabalin (Lyrica) 100 Mg Capsule, 100 MG PO TID PRN for LUPUS FLARE UP Simethicone (Simethicone) 80 Mg Tab.chew, 80 MG PO QID PRN for GAS PAIN Sumatriptan Succinate (Sumatriptan Succinate) 100 Mg Tablet, 100 MG PO BID PRN for MIGRAINE Allergies Coded Allergies: azithromycin (Verified Allergy, Unknown, hives, 02/01/19) A-FIB/CHADSVASC A-FIB History Current/History of A-Fib/PAF?: No EMILY JOVEL DO Feb 01, 2019 21:31 NEISHA HOLLAND MD Feb 02, 2019 02:12
[2019-02-02] MEDS: NORCO, ANEXSIA 5/325MG TABLET (HYDROcodone/ACETAMINOPHEN) PO PRN ×4 (00:55→23:11)
[2019-02-02 06:00] VITALS: BP 115/67
[2019-02-02 06:58] LABS: HEMOGLOBIN 11.2 g/dl (12.0-15.5); MEAN CORPUSCULAR HEMOGLOBIN 30.3 pg (27.0-33.0); MEAN CORPUSCULAR HGB CONC 32.9 g/dl (32.0-36.5); MEAN CORPUSCULAR VOLUME 91.9 fl (80.0-96.0); PLATELET COUNT, AUTOMATED 117 10^3/uL (150-450); WHITE BLOOD COUNT 4.9 10^3/uL (4.0-10.0)
[2019-02-02 07:25] LABS: BLOOD UREA NITROGEN 14 MG/DL (7-18); CALCIUM LEVEL 8.9 MG/DL (8.5-10.1); CARBON DIOXIDE LEVEL 26 MEQ/L (21-32); CHLORIDE LEVEL 105 MEQ/L (98-107); CREATININE FOR GFR 0.62 MG/DL (0.55-1.30); GLOMERULAR FILTRATION RATE > 60.0 (>51); GLUCOSE, FASTING 95 MG/DL (70-100); POTASSIUM SERUM 3.3 MEQ/L (3.5-5.1); SODIUM LEVEL 139 MEQ/L (136-145)
[2019-02-02] MEDS: MORPHINE 2 MG/ML 1ML VIAL (J2270) IV PRN (07:45)
[2019-02-02] MEDS ORDERED: POTASSIUM CHLORIDE 10 MEQ SR TABLET PO ONE (08:00)
[2019-02-02] MEDS: HEPARIN SOD (PORCINE) 5000 UNITS/ML VIAL SQ SCH (09:33)
[2019-02-02] MEDS: THYROID 30 MG TAB PO SCH (09:33)
[2019-02-02] MEDS: methylPREDNISolone 4 MG TAB PO SCH (09:33)
[2019-02-02] MEDS: LACTOBACILLUS ACIDOPHILUS CAP (BACID) PO SCH (09:33)
[2019-02-02] MEDS: HYDROXYCHLOROQUINE 200 MG TAB PO SCH ×2 (09:34→21:00)
[2019-02-02] MEDS: PROPRANOLOL 20 MG TAB PO SCH ×2 (09:37→20:59)
--- NOTE | 2019-02-02 11:30 | IPNPDOC ---
Date Seen The patient was seen on 02/02/19. Progress Note SUBJECTIVE: Patient was seen and examined laying in bed. She states she continues to have left flank pain which is somewhat improved but still bothers her, especially when shifting position in bed. She denies any dysuria or urinary frequency. She denies any new issues or complaints. OBJECTIVE PHYSICAL EXAMINATION: VITAL SIGNS: Please see below. GENERAL APPEARANCE: Patient is awake, alert and oriented. She is not in acute distress. She appears uncomfortable when moving in bed. HEENT: Atraumatic, normocephalic. Eyes nonicteric. moist mucous membranes CARDIOVASCULAR: Normal S1, S2, regular rate and rhythm. No clicks, rubs or murmurs. LUNGS:. Clear vesicular breath sounds bilaterally. Respiratory effort is limited by pain on inspiration. No wheezes, rhonchi or rales. Symmetric chest expansion. ABDOMEN: Soft, nondistended, nontender, no rebound tenderness or guarding. Bowel sounds present MUSCULOSKELETAL: No midline tenderness of the thoracic or lumbar spine. There is minimal hypertonicity of the paraspinal muscles. There is tenderness overlying the patient's left flank with an area of point tenderness. EXTREMITIES: No edema. Full and equal pulses bilateral upper lower extremities. NEUROLOGICAL: No gross focal neurological deficits appreciated. PSYCHIATRIC: appropriate mood and affect LABORATORY DATA, IMAGING STUDIES, MICROBIOLOGY: Please see below. ASSESSMENT/PLAN: Patient is a 53-year-old female with a past medical history significant for systemic lupus erythematosus, common immune variable immunodeficiency, asthma, Ronda's thyroiditis and hereditary angioedema presented to the [facility] emergency department with complaint of intractable back pain for 3 days duration # Intractable back pain -CT imaging demonstrated a small angiomyolipoma on her left kidney, although this is likely not the cause of her pain, localized pain to the L. of tho racic/lumbar spine in muscular region, not in location of kidney angiomyolipoma found on imaging. -Her pain does appear to be somewhat neuropathic as even lightly touching the left flank creates discomfort and pain -Will continue with IV morphine and PO Percocet -Scheduled Lyrica for neuropathic pain # Urinary Urgency -Complained of urinary urgency and left flank pain on admission -U/A was negative, d/c Cefepime # Angiomyolipoma on CT imaging -Small [address] imaging. This is present on her left kidney and could cause her pain although seems unlikely -likely an incidental finding, patient should follow-up with her PCP for serial imaging to assess growth # Systemic Lupus Erythematosus -Continue Plaquenil, methylprednisone, colchicine -Patient receives weekly infusions of Benlysta # Asthma -Continue with Xopenex and Albuterol HFA prn # Right sided Lymphadenopathy -Patient has right sided lymphadenopathy. She has been evaluated for this previously. She states this comes and goes usually on her right side. She has had a lymph node biopsy and resection in the past and was told that it was from her lupus. - f/u blood cultures. No clear source of infection at this time. # Chronic diarrhea -follows with a GI in [place], Dr. Wallace -previously told that she had ulcerative colitis by a previous doctor however her current GI states that she does not have UC based on Colonoscopy and biopsies # DVT prophylaxis: Heparin SQ DISPOSITION: pending clinical improvement Attending Attestation: I have personally evaluated and examined the patient. Discussed with resident/student regarding plan of care and agree with the above assessment and plan. VS, I&O, 24H, Fishbone Vital Signs/I&O Vital Signs Date Time Temp Pulse Resp B/P (MAP) Pulse Ox O2 Delivery O2 Flow Rate FiO2 02/02/19 09:37 62 116/64 02/02/19 07:55 16 02/02/19 06:00 98.1 98 Room Air I&O- Last 24 Hours up to 6 AM 02/02/19 06:00 Intake Total 480 ml Output Total 0 ml Balance 480 ml Laboratory Data 24H LABS Laboratory Tests 2 02/01/19 15:54: Immature Granulocyte % (Auto) 0.2, Neutrophils (%) (Auto) 78.2H, Lymphocytes (%) (Auto) 15.0L, Monocytes (%) (Auto) 6.4H, Eosinophils (%) (Auto) 0.0, Basophils (%) (Auto) 0.2, Neutrophils # (Auto) 3.2, Lymphocytes # (Auto) 0.6L, Monocytes # (Auto) 0.3, Eosinophils # (Auto) 0.0, Basophils # (Auto) 0.0, Nucleated Red Blood Cells % (auto) 0.0, Anion Gap 8, Glomerular Filtration Rate > 60.0, Calcium Level 9.6, Total Bilirubin 0.7, Direct Bilirubin 0.2, Aspartate Amino Transf (AST/SGOT) 30, Alanine Aminotransferase (ALT/SGPT) 58, Alkaline Phosphatase 102, Total Creatine Kinase 62, Creatine Kinase MB < 1.0, Creatine Kinase MB Relative Index 1.61, Troponin I < 0.02, C-Reactive Protein, Quantitative < 0.30, Total Protein 7.4, Albumin 3.9, Albumin/Globulin Ratio 1.11, Lipase 99 02/01/19 16:17: Lactic Acid Level 0.9 02/01/19 18:55: Urine Color STRAW, Urine Appearance CLEAR, Urine pH 6.0, Urine Specific [place] 1.040, Urine Protein NEGATIVE, Urine Glucose (UA) NEGATIVE, Urine Ketones 1+H, Urine Blood NEGATIVE, Urine Nitrite NEGATIVE, Urine Bilirubin NEGATIVE, Urine Urobilinogen 0.2, Urine Leukocyte Esterase NEGATIVE, Urine WBC (Auto) 0, Urine RBC (Auto) 0, Urine Hyaline Casts (Auto) 0, Urine Bacteria (Auto) NEGATIVE, Urine Squamous Epithelial Cells 0, Urine Sperm (Auto) 02/02/19 06:37: Nucleated Red Blood Cells % (auto) 0.0, Anion Gap 8, Glomerular Filtration Rate > 60.0, Calcium Level 8.9 02/02/19 09:07: Vitamin B12 Level 468 CBC/BMP Laboratory Tests 02/01/19 15:54 02/02/19 06:37 Microbiology Microbiology 02/02/19 Blood Culture, Received Pending MONA MURPHY D.O. Feb 02, 2019 11:30 KEVAN BLACKWELL MD Feb 02, 2019 12:01
[2019-02-02 14:00] VITALS: BP 124/71
[2019-02-02] MEDS: PREGABALIN 100 MG CAP (LYRICA) PO SCH ×2 (16:21→20:59)
[2019-02-02] MEDS: SENOKOT S TAB PO SCH (18:45)
--- NOTE | 2019-02-02 19:47 | REPVR ---
PROCEDURE INFORMATION: Exam: US Retroperitoneal Limited, Kidneys Exam date and time: 02/02/2019 6:52 PM Age: 53 years old Clinical indication: Abdominal pain; Flank; Left; Additional info: Flank pain TECHNIQUE: Imaging protocol: Real-time ultrasound of the retroperitoneum with image documentation. Examination was focused on the kidneys. COMPARISON: CT ABD PELVIS W/O CONTRAST 02/01/2019 5:07 PM FINDINGS: Right kidney: Right kidney measures 10.6 x 5.5 x 4.3 cm. Left kidney: Left kidney measures 11.3 x 4.3 x 5.8 cm. An echogenic focus in the lower pole of the left kidney measures 1.2 x 1 x 1.2 cm consistent with an angiomyolipoma. Bladder: There is an apparent septation demonstrated in the bladder which appears to be the result of a bladder diverticulum. IMPRESSION: 1. An echogenic focus in the lower pole of the left kidney measures 1.2 x 1 x 1.2 cm consistent with an angiomyolipoma. 2. There is an apparent septation demonstrated in the bladder which appears to be the result of a bladder diverticulum. Electronically signed by: Jean-Claude Llanes On 02/02/2019 19:46:53 PM
[2019-02-02] MEDS: CETIRIZINE (ZyrTEC) 10 MG TAB PO SCH (20:59)
[2019-02-02] MEDS: PANTOPRAZOLE 40MG TAB (PROTONIX) PO SCH (21:00)
[2019-02-02 22:00] VITALS: BP 114/62
[2019-02-03 06:00] VITALS: BP 121/67
[2019-02-03 06:57] LABS: HEMATOCRIT 36.4 % (36.0-47.0); HEMOGLOBIN 11.8 g/dl (12.0-15.5); MEAN CORPUSCULAR HEMOGLOBIN 30.6 pg (27.0-33.0); MEAN CORPUSCULAR HGB CONC 32.4 g/dl (32.0-36.5); MEAN CORPUSCULAR VOLUME 94.3 fl (80.0-96.0); PLATELET COUNT, AUTOMATED 107 10^3/uL (150-450); RED BLOOD COUNT 3.86 10^6/uL (4.00-5.40); WHITE BLOOD COUNT 4.1 10^3/uL (4.0-10.0)
[2019-02-03 07:20] LABS: BLOOD UREA NITROGEN 12 MG/DL (7-18); CARBON DIOXIDE LEVEL 29 MEQ/L (21-32); CHLORIDE LEVEL 107 MEQ/L (98-107); GLOMERULAR FILTRATION RATE > 60.0 (>51); GLUCOSE, FASTING 91 MG/DL (70-100); POTASSIUM SERUM 3.6 MEQ/L (3.5-5.1); SODIUM LEVEL 140 MEQ/L (136-145)
[2019-02-03] MEDS ORDERED: CYCLOBENZAPRINE 10 MG TAB PO PRN (08:30)
[2019-02-03] MEDS: SENOKOT S TAB PO SCH (09:00)
[2019-02-03 09:30] VITALS: BP 121/67
[2019-02-03] MEDS: LACTOBACILLUS ACIDOPHILUS CAP (BACID) PO SCH (09:30)
[2019-02-03] MEDS: PROPRANOLOL 20 MG TAB PO SCH (09:30)
[2019-02-03] MEDS: HYDROXYCHLOROQUINE 200 MG TAB PO SCH (09:30)
[2019-02-03] MEDS: THYROID 30 MG TAB PO SCH (09:30)
[2019-02-03] MEDS: methylPREDNISolone 4 MG TAB PO SCH (09:30)
[2019-02-03] MEDS: PREGABALIN 100 MG CAP (LYRICA) PO SCH ×2 (09:30→16:50)
[2019-02-03] MEDS ORDERED: CYCL10TA PO (12:37)
--- NOTE | 2019-02-03 12:59 | DS.PDOC ---
Discharge Summary General Date of Admission Feb 01, 2019 at 20:50 Date of Discharge 02/03/2019 Primary Care Physician: SONU CHURCH DO Attending Physician: KEVAN BLACKWELL MD Discharge Summary PROCEDURES PERFORMED DURING STAY: None. ADMITTING DIAGNOSES: 1. Intractable back pain 2. Urinary Urgency 3. 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 Systemic Lupus Erythematosus 5. Asthma 6. Right sided Lymphadenopathy 7. Chronic diarrhea 8. Common Variable Immune Deficiency DISCHARGE DIAGNOSES: 1. Intractable back pain 2. Urinary Urgency 3. 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 Systemic Lupus Erythematosus 5. Asthma 6. Right sided Lymphadenopathy 7. Chronic diarrhea 8. Common Variable Immune Deficiency 9. Bladder diverticulum COMPLICATIONS/CHIEF COMPLAINT: Back Pain, Cva, Cvid, Htn, Lupus, Pud. HISTORY OF PRESENT ILLNESS: 53 year old female who presented to the [facility] ER with complaint of left sided worsening flank pain. Patient states that she has histo ry significant for Systemic Lupus Erythematous, Common Variable Immunodeficiency Disorder, Ronda thyroiditis, and Hereditary Angioedema. She stated that 3 days ago she developed pain localized to her left side. At first she thought the pain was pleurisy related to her Lupus. She currently has Carney available and stated that she took this for her pain however did not have any relief. Over the next, couple of days the patient continued to have pain. She denies any fevers, chills, nausea, or vomiting. She denies any dysuria or increased frequency although admitted to some urinary urgency. She admitted to a history of chronic diarrhea as well as right sided lymphadenopathy both of which she has been evaluated for outpatient. She stated that today she was having difficulty bearing the pain and decided to come to the ER. In the ER the patient was vitally stable. She was afebrile and without an elevation in her WBC. She received a CTA of her chest which did not demonstrate any acute findings. 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 Her imaging was otherwise negative. Hospitalist service was consulted for further evaluation and management HOSPITAL COURSE: Patient was admitted to the hospital and started on IV morphine as needed for her pain. In addition to her home oral Carney and Lyrica. Due to the patient's complaint of urinary urgency, the patient was initially started on cefepime for antibiotic coverage for possible UTI. A UA was performed and was found to be normal, so her antibiotics were discontinued. Renal ultrasound was also performed which demonstrated the known angiomyolipoma on the left kidney as well as a diverticulum of the bladder. This was discussed with urology who suggested outpatient follow-up. The patient's pain was thought to be musculoskeletal in nature, and the patient was given a heating pad and started on Flexeril for supportive care. Patient did find some relief with these measures. During her admission, the patient was found to have increased bruising while on relaxes. The subcutaneous heparin was discontinued and she was on mechanical DVT prophylaxis with PAUL stockings. Patient appeared slightly more comfortable after percocet initiated but still reports pain and became worried about hereditary angioedema attack. She reported exacerbation usually with facial swelling and was previously treated with Berinert. Call made out to her rag shredder to discuss about her visit then subsequently surgery regarding likelihood of GI angioedema. Patient does not exhibit classical symptoms, does not exhibit any nausea, vomiting, abdominal pain or obstructive symptoms. Location of pain is localized to L. sided lower back, very atypical site for GI complaints. However, CT imaging does show dilated bowel loops with possible inflammation. Cannot definitely rule out HAE at this time and opt to treat with one dose of Berinert and if patient's pain improves and think she could go home she can be discharged. Patient think that she can rest at home with pain medications as we we are primarily treating her here for pain. She reports some level of improvement in pain after treatment and was discharged home with short course of Flexeril and percocet for pain. DISCHARGE MEDICATIONS: Please see below. ALLERGIES: Please see below. PHYSICAL EXAMINATION ON DISCHARGE: VITAL SIGNS: Please see below. GENERAL APPEARANCE: Patient is awake, alert and oriented. She is not in acute distress. She appears uncomfortable when moving in bed. HEENT: Atraumatic, normocephalic. Eyes nonicteric. moist mucous membranes CARDIOVASCULAR: Normal S1, S2, regular rate and rhythm. No clicks, rubs or murmurs. LUNGS: Clear vesicular breath sounds bilaterally. Respiratory effort is limited by pain on inspiration. No wheezes, rhonchi or rales. Symmetric chest expansion. ABDOMEN: Soft, nondistended, nontender, no rebound tenderness or guarding. Bowel sounds present MUSCULOSKELETAL: No midline tenderness of the thoracic or lumbar spine. There is minimal hypertonicity of the paraspinal muscles. There is tenderness overlying the patient's left flank with an area of point tenderness. EXTREMITIES: No edema. Full and equal pulses bilateral upper lower extremities. NEUROLOGICAL: No gross focal neurological deficits appreciated. PSYCHIATRIC: appropriate mood and affect LABORATORY DATA: Please see below. IMAGING: (as read by radiologist) - CTA chest: No acute findings. - CT abd/pelvis: 1. There has been a cholecystectomy. 2. 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 3. Dilated loops of small bowel as described above may represent a early small bowel obstruction, ileus or less likely regional enteritis. - Renal US: 1. An echogenic focus in the lower pole of the left kidney measures 1.2x1x1.2 cm consistent with an angiomyolipoma. 2. There is an apparent septation demonstrated in the bladder which appears to be the result of a bladder diverticulum. PROGNOSIS: Fair ACTIVITY: As tolerated. DIET: As tolerated. DISCHARGE PLAN/DISPOSITION: Home DISCHARGE INSTRUCTIONS: 1. Follow-up with your PCP in 7-10 days 2. You can continue taking your home pain medication to help with your back pain in addition the flexeril we have prescribed you 3. If your symptoms return or your condition worsens, please call your PCP or return to the ED for further evaluation. ITEMS TO FOLLOWUP ON ON OUTPATIENT: 1. Left back pain, likely musculoskeletal 2. Bladder diverticulum - referral to urology for outpatient evaluation 2. Left renal angiomyolipoma - referral to urology for outpatient evaluation DISCHARGE CONDITION: Stable. TIME SPENT ON DISCHARGE: 45 minutes Attending Attestation: I have personally evaluated and examined the patient. Discussed with resident/student regarding plan of care and agree with the above assessment and plan. Vital Signs/I&Os Vital Signs Date Time Temp Pulse Resp B/P (MAP) Pulse Ox O2 Delivery O2 Flow Rate FiO2 02/03/19 09:30 55 121/67 02/03/19 06:00 97.8 18 99 Room Air I&O- Last 24 Hours up to 6 AM 02/03/19 06:00 Intake Total 1580 ml Output Total 1000 ml Balance 580 ml Laboratory Data Labs 24H Laboratory Tests 2 02/02/19 21:00: Urine Color STRAW, Urine Appearance CLEAR, Urine pH 6.0, Urine Specific [place] 1.004, Urine Protein NEGATIVE, Urine Glucose (UA) NEGATIVE, Urine Ketones NEGATIVE, Urine Blood NEGATIVE, Urine Nitrite NEGATIVE, Urine Bilirubin NEGATIVE, Urine Urobilinogen 0.2, Urine Leukocyte Esterase NEGATIVE, Urine WBC (Auto) 0, Urine RBC (Auto) 1, Urine Hyaline Casts (Auto) 0, Urine Bacteria (Auto) NEGATIVE, Urine Squamous Epithelial Cells 0, Urine Sperm (Auto) 02/03/19 06:32: Nucleated Red Blood Cells % (auto) 0.0, Anion Gap 4L, Glomerular Filtration Rate > 60.0, Calcium Level 9.0 CBC/BMP Laboratory Tests 02/03/19 06:32 Microbiology Microbiology 02/02/19 Blood Culture, Received Pending 02/02/19 Blood Culture - Preliminary, Resulted No growth after 24 hours . All specim... Discharge Medications Scheduled Acetaminophen (Tylenol) 325 Mg Tablet, 650 MG PO QWEEK, (Reported) TAKE BEFORE CUVITRU INFUSION ON THURSDAYS Belimumab (Benlysta) 200 Mg/1 Ml Auto.injct, 200 MG SC QWEEK, (Reported) CURRENTLY ON HOLD DUE TO INFECTION IN THE FALL - HAS NOT RESTARTED YET. Calcium Carbonate/Vitamin D3 (Calcium 600-Vit D3 200 Tablet) 1 Each Tablet, 1 TAB PO DAILY, (Reported) Cetirizine HCl (Cetirizine HCl) 10 Mg Tablet, 10 MG PO QHS, (Reported) Cyclosporine (Restasis) 0.05% Droperette, 1 DROP OU BID, (Reported) Diphenhydramine HCl (Diphenhydramine HCl) 25 Mg Capsule, 25 MG PO QWEEK, (Reported) TAKE BEFORE CUVITRU INFUSION ON THURSDAYS Ergocalciferol (Vitamin D2) (Vitamin D2) 2,000 Unit Tablet, 2,000 UNIT PO DAILY, (Reported) Hydroxychloroquine Sulfate (Hydroxychloroquine Sulfate) 200 Mg Tablet, 200 MG PO DAILY, (Reported) 200MG IN THE MORNING, 100MG QHS Hydroxychloroquine Sulfate (Hydroxychloroquine Sulfate) 200 Mg Tablet, 100 MG PO QHS, (Reported) Immun Glob G(IgG)/Gly/Iga Ov50 (Cuvitru 8 Gram/ 40 ml Vial) 8 Gm/40 Ml Vial, 8 GM SC QWEEK, (Reported) THURSDAYS - INFUSE OVER 8 HOURS Lactobacillus Acidophilus (Probiotic) 1 Each Capsule, 1 CAP PO DAILY, (Reported) Methylprednisolone (Methylprednisolone) 4 Mg Tablet, 8 MG PO DAILY, (Reported) TAPERS UP FOR LUPUS FLARE UP Mycophenolate Sodium (Mycophenolic Acid) 360 Mg Tablet.dr, 360 MG PO BID, (Reported) HAS BEEN ON HOLD DUE TO INFECTION IN THE FALL. HAS NOT RESTARTED YET Ondansetron HCl (Ondansetron HCl) 4 Mg Tablet, 4 MG PO QWEEK, (Reported) TAKE BEFORE CUVITRU INFUSION ON THURSDAYS Pantoprazole Sodium (Pantoprazole Sodium) 40 Mg Tablet.dr, 40 MG PO QHS, (Reported) Propranolol HCl (Propranolol HCl) 20 Mg Tablet, 20 MG PO BID, (Reported) Roflumilast (Daliresp) 500 Mcg Tablet, 500 MCG PO QHS, (Reported) Thyroid ([place] Thyroid) 60 Mg Tablet, 60 MG PO DAILY, (Reported) Scheduled PRN Acetaminophen (Tylenol) 325 Mg Tablet, 650 MG PO Q4H PRN for PAIN, (Reported) Albuterol Sulfate (Proair Hfa) 8.5 Gm Hfa.aer.ad, 2 PUFF INH Q6H PRN for SHORTNESS OF BREATH, (Reported) Colchicine (Colcrys) 0.6 Mg Tablet, 0.6 MG PO DAILY PRN for PLEURISY, (Reported) Cyclobenzaprine HCl (Cyclobenzaprine HCl) 10 Mg Tablet, 10 MG PO Q8HP PRN for SPASMS Hydrocodone/Acetaminophen (Hydrocodone-Acetamin 5-325 mg) 1 Each Tablet, 1 TAB PO Q6H PRN for PAIN, (Reported) Levalbuterol HCl (Levalbuterol HCl) 0.63 Mg/3 Ml Vial.neb, 0.63 MG INH Q8H PRN for SHORTNESS OF BREATH, (Reported) Oxycodone HCl/Acetaminophen (Oxycodone-Acetaminophen 5-325) 1 Each Tablet, 1 TAB PO QIDP PRN for pain Pregabalin (Lyrica) 100 Mg Capsule, 100 MG PO TID PRN for LUPUS FLARE UP, (Reported) Simethicone (Simethicone) 80 Mg Tab.chew, 80 MG PO QID PRN for GAS PAIN, (Reported) Sumatriptan Succinate (Sumatriptan Succinate) 100 Mg Tablet, 100 MG PO BID PRN for MIGRAINE, (Reported) Allergies Coded Allergies: azithromycin (Verified Allergy, Unknown, hives, 02/01/19) MONA MURPHY D.O. Feb 03, 2019 12:59 KEVAN BLACKWELL MD Feb 04, 2019 13:07
[2019-02-03] MEDS ORDERED: PERCOCET 5MG/325MG TAB PO PRN ×3 (13:45)
[2019-02-03 14:00] VITALS: BP 135/70
[2019-02-03] MEDS ORDERED: C1 ESTERASE INHIBITOR IV ONE (18:00)
[2019-02-04] MEDS ORDERED: OXYC1TAB23 PO (12:55)
== END 2019-02-03 19:23 | disposition home or self-care (01) | DRG 552 ==
LOC: M ED 13:59 → M ED INP 20:50 → M MSPAV 21:44
PROVIDERS: ADMIT Internal Medicine; ATTEND Student in an Organized Health Care Education/Training Program
DX: M54.89 Other dorsalgia (principal); D83.9 Common variable immunodeficiency, unspecified; R39.15 Urgency of urination; D17.71 Benign lipomatous neoplasm of kidney; M32.9 Systemic lupus erythematosus, unspecified; J45.909 Unspecified asthma, uncomplicated; R59.0 Localized enlarged lymph nodes; K52.9 Noninfective gastroenteritis and colitis, unspecified; N32.3 Diverticulum of bladder; E06.3 Autoimmune thyroiditis; Z79.899 Other long term (current) drug therapy; Z88.1 Allergy status to other antibiotic agents

== ENCOUNTER → 2019-04-24 | Outpatient (CLI) | payer OTHER ==
[~2019-04-24] MED LIST changes: +ACET-907 PO; +ALL10TAB29 PO; +BENL200I SC; +CALC600T57 PO; +CYCL10TA PO; +DIPH25CA32 PO; +HYDR-3713 PO; +HYDR200T3 PO; +LEVA0.636 INH; +METH4TAB8 PO; +ONDA-83 PO; +OXYC1TAB23 PO; +PANT-23 PO; +PREG100CA PO; +PROAAER10 INH; +PROBCAP14 PO; +REST0.05 OU; +SIME80TA PO; +SUMA100T2 PO; +THYR60TA PO; +VITA200028 PO; +[UNRECOGNIZED DRUG - CODE] SC
--- NOTE | 2019-04-24 18:00 | REP ---
HISTORY: Acute bronchitis. COMPARISON: The latest prior, a frontal view obtained 11/14/2018 as part of a rib series. FINDINGS: The superior mediastinal structures are midline. The cardiac silhouette is unremarkable in size, shape and position. The diaphragmatic surfaces of the lungs are regular and the costophrenic angles are clear. The pulmonary sol are clear. The imaged osseous structures are intact. The intracardiac device is unchanged. IMPRESSION: There is no acute cardiopulmonary disease. Electronically Signed by Arron Vega DO 04/24/2019 06:59 P
[2019-04-24 21:09] LABS: BASO % 0.5 % (0.0-1.0); EOS % 0.4 % (0.0-3.0); HEMATOCRIT 42.5 % (36.0-47.0); HEMOGLOBIN 13.9 g/dl (12.0-15.5); LYMPH # 0.7 10^3/uL (1.5-5.0); LYMPH % 12.4 % (24.0-44.0); MEAN CORPUSCULAR HGB CONC 32.7 g/dl (32.0-36.5); MEAN CORPUSCULAR VOLUME 91.6 fl (80.0-96.0); MONO # 0.3 10^3/uL (0.0-0.8); MONO % 4.7 % (0.0-5.0); NEUTROPHILS # 4.7 10^3/uL (1.5-8.5); NEUTROPHILS % 81.8 % (36.0-66.0); PLATELET COUNT, AUTOMATED 159 10^3/uL (150-450); RED BLOOD COUNT 4.64 10^6/uL (4.00-5.40); WHITE BLOOD COUNT 5.7 10^3/uL (4.0-10.0)
[2019-04-24 21:29] LABS: ALBUMIN 3.9 GM/DL (3.2-5.2); ALT/SGPT 41 U/L (12-78); BILIRUBIN,TOTAL 0.4 MG/DL (0.2-1.0); BLOOD UREA NITROGEN 9 MG/DL (7-18); C REACTIVE PROTEIN QUANTITATIV < 0.30 MG/DL (0.00-0.30); CALCIUM LEVEL 9.4 MG/DL (8.5-10.1); CARBON DIOXIDE LEVEL 30 MEQ/L (21-32); CHLORIDE LEVEL 103 MEQ/L (98-107); CREATININE FOR GFR 0.61 MG/DL (0.55-1.30); ERYTHROCYTE SEDIMENTATION RATE 8 mm/hr (0-30); GLOMERULAR FILTRATION RATE > 60.0 (>51); GLUCOSE, FASTING 119 MG/DL (70-100); POTASSIUM SERUM 4.3 MEQ/L (3.5-5.1); SODIUM LEVEL 137 MEQ/L (136-145); TOTAL PROTEIN 7.2 GM/DL (6.4-8.2)
== END ==
LOC: M WUC 16:50
PROVIDERS: ATTEND Physician Assistant
DX: J20.9 Acute bronchitis, unspecified (principal)

== ENCOUNTER → 2019-04-24 | Outpatient (REF) | payer OTHER | LOC: M LAB REF 17:35 | PROVIDERS: ATTEND Physician Assistant | DX: J20.9 Acute bronchitis, unspecified (principal) | CPT/HCPCS: 87486; 87581; 87633; 87798; U0002 ==

== ENCOUNTER → 2019-06-19 | Outpatient (REF) | payer OTHER ==
[~2019-06-19] MED LIST changes: +ALEN70TA82 PO; -ALL10TAB29 PO; +AMLO1TAB24 PO; +AMOX500C PO; +ATOV5SUS PO; +CETI-24 PO; +CYCL-707 PO; -CYCL10TA PO; +HYDR-4517 PO; +MYRB50TA PO; +PANT40TA29 PO; -PANT40TA3 PO; +PREG150C PO; +SIME80CH5 PO; -SIME80TA PO; +TRAZ1TAB10 PO
[2019-06-20 09:50] LABS: THYROGLOBULIN ANTIBODY 25.2 U/ML (<60.0); THYROID PEROXIDASE ANTIBODY 80.7 U/ML (<60.0)
== END ==
LOC: M SHH 12:56
PROVIDERS: ATTEND Internal Medicine Rheumatology
DX: E06.3 Autoimmune thyroiditis (principal); G93.49 Other encephalopathy

== ENCOUNTER → 2019-11-02 | Outpatient (CLI) | payer OTHER ==
[~2019-11-02] MED LIST changes: +ALEN70TA74 PO; -ALEN70TA82 PO; -SIME80CH5 PO; +SIME80TA PO
[2019-11-02 16:05] LABS: APPEARANCE, URINE CLEAR (CLEAR); BACTERIA, URINE AUTO NEGATIVE (NEGATIVE); BASO % 0.2 % (0.0-1.0); BILIRUBIN, URINE AUTO NEGATIVE (NEGATIVE); BLOOD, URINE BLOOD NEGATIVE (NEGATIVE); COLOR, URINE YELLOW (YELLOW); EOS % 0.3 % (0.0-3.0); GLUCOSE, URINE (UA) AUTO NEGATIVE (NEGATIVE); HEMATOCRIT 45.3 % (36.0-47.0); HEMOGLOBIN 14.4 g/dl (12.0-15.5); KETONE, URINE AUTO NEGATIVE (NEGATIVE); LEUKOCYTE ESTERASE, URINE AUTO NEGATIVE (NEGATIVE); LYMPH # 0.8 10^3/uL (1.5-5.0); LYMPH % 8.6 % (24.0-44.0); MEAN CORPUSCULAR HGB CONC 31.8 g/dl (32.0-36.5); MEAN CORPUSCULAR VOLUME 94.4 fl (80.0-96.0); MONO # 0.5 10^3/uL (0.0-0.8); MONO % 5.4 % (0.0-5.0); NEUTROPHILS # 7.4 10^3/uL (1.5-8.5); NEUTROPHILS % 84.9 % (36.0-66.0); NITRITE, URINE AUTO NEGATIVE (NEGATIVE); PLATELET COUNT, AUTOMATED 132 10^3/uL (150-450); PROTEIN, URINE AUTO NEGATIVE (NEGATIVE); RBC, URINE AUTO 0 /HPF (0-3); SPECIFIC GRAVITY URINE AUTO 1.012 (1.002-1.035); SQUAMOUS EPITHELIAL CELL UR AU 0 /HPF (0-6); UROBILINOGEN, URINE AUTO 0.2 mg/dL (0.0-2.0); WBC, URINE AUTO 0 /HPF (0-3); WHITE BLOOD COUNT 8.7 10^3/uL (4.0-10.0)
[2019-11-02 16:15] LABS: ALBUMIN 3.8 GM/DL (3.2-5.2); ALT/SGPT 49 U/L (12-78); BILIRUBIN,DIRECT 0.1 MG/DL (0.0-0.2); BILIRUBIN,TOTAL 0.5 MG/DL (0.2-1.0); C REACTIVE PROTEIN QUANTITATIV < 0.30 MG/DL (0.00-0.30); COMPLEMENT C3 119 MG/DL (90-180); COMPLEMENT C4 26 MG/DL (10-40); CREATININE FOR GFR 0.71 MG/DL (0.55-1.30); GLOMERULAR FILTRATION RATE > 60.0 (>51); TOTAL PROTEIN 6.6 GM/DL (6.4-8.2)
[2019-11-02 16:27] LABS: CREATININE,RANDOM URINE 34.8 MG/DL
[2019-11-02 16:28] LABS: ERYTHROCYTE SEDIMENTATION RATE 4 mm/hr (0-30)
[2019-11-02 16:36] LABS: TOTAL 25(OH) VITAMIN D 27.6 NG/ML (30.0-100.0)
[2019-11-06 17:07] LABS: ANTI DS-DNA AB Negative (Negative)
== END ==
LOC: M PLALAB 12:29
PROVIDERS: ATTEND Internal Medicine Rheumatology
DX: R68.84 Jaw pain (principal); Z79.899 Other long term (current) drug therapy

== ENCOUNTER 2019-12-02 17:13 | Observation (INO) | payer OTHER ==
[~2019-12-02] VITALS: Ht 165.1 cm; Wt 58.9 kg
[~2019-12-02 17:13] MED LIST changes: -ALEN70TA74 PO; -AMLO1TAB24 PO; -AMOX500C PO; -ATOV5SUS PO; -HYDR-4517 PO; -MYRB50TA PO; -PREG150C PO; -TRAZ1TAB10 PO
[2019-12-02] MEDS ORDERED: hydrALAZINE 20MG/ML 1ML VIAL (J0360 PER 20MG) IV STA (17:26)
[2019-12-02] MEDS ORDERED: ISOVUE-370 76% 100ML VIAL As Ordered ONE (17:26)
[2019-12-02] MEDS ORDERED: diphenhydrAMINE 50MG/ML VIAL (J1200) IV STA (17:47)
[2019-12-02] MEDS ORDERED: METOCLOPRAMIDE INJ 10MG/2ML VIAL (J2765 PER 1) IV ONE (18:00)
[2019-12-02] MEDS ORDERED: KETOROLAC 30 MG/ML 1ML VIAL IV ONE (18:00)
[2019-12-02] MEDS ORDERED: MORPHINE 4 MG/ML 1ML VIAL/SYRINGE (J2270) IV ONE (18:00)
--- NOTE | 2019-12-02 18:02 | REP ---
INDICATION: CHEST PAIN COMPARISON: 04/24/2019 TECHNIQUE: Portable AP view of the chest FINDINGS: The mediastinum and cardiac silhouette are stable and within normal limits for portable technique. The lung sol are clear without acute consolidation, effusion, or pneumothorax. Old healed the left humerus fracture suggested. IMPRESSION: No acute cardiopulmonary process appreciated. <Electronically signed by Bienvenido Tompkins > 12/02/19 [id number]
--- NOTE | 2019-12-02 18:17 | REPVR ---
PROCEDURE INFORMATION: Exam: CT Head Without Contrast Exam date and time: 12/02/2019 5:29 PM Age: 54 years old Clinical indication: Pain; Headache; Additional info: R/O CVA headache TECHNIQUE: Imaging protocol: Computed tomography of the head without contrast. Radiation optimization: All CT scans at this facility use at least one of these dose optimization techniques: automated exposure control; mA and/or kV adjustment per patient size (includes targeted exams where dose is matched to clinical indication); or iterative reconstruction. COMPARISON: CT Head without contrast 06/03/2016 1:19 PM FINDINGS: Limitations: No sagittal reformatted images. Brain: There is no mass effect. There is no evidence of acute cortical infarct or intracranial mass lesion. Milligan-white matter differentiation is normal. There is no extra-axial fluid collection. No midline shift. No intracranial hemorrhage. Cerebral ventricles: The ventricular system size is within normal limits for the patient's 54 years of age. A normal variant left choroid fissure cyst, 7 x 3 x 3 mm, is unchanged from 2017. Bones/joints: Unremarkable. No acute fracture. Paranasal sinuses: Visualized sinuses are unremarkable. No fluid levels. Mastoid air cells: Visualized mastoid air cells are well aerated. Orbital cavity: Normal. Soft tissues: Unremarkable. IMPRESSION: No acute intracranial abnormality. No interval change when compared to the last head CT in 2017. Electronically signed by: Jay Prabhakar On 12/02/2019 18:17:19 PM
[2019-12-02 18:31] LABS: FREE T4 0.67 NG/DL (0.76-1.46); THYROID STIMULATING HORMONE 0.44 uIU/ML (0.358-3.740)
[2019-12-02] MEDS ORDERED: ALEN70TA74 PO (18:34)
[2019-12-02] MEDS ORDERED: ATOV5SUS PO (18:34)
[2019-12-02] MEDS ORDERED: MYRB50TA PO (18:34)
[2019-12-02] MEDS ORDERED: TRAZ1TAB10 PO (18:34)
[2019-12-02] MEDS ORDERED: hydrALAZINE 20MG/ML 1ML VIAL (J0360 PER 20MG) IV ONE (18:45)
[2019-12-02 19:06] LABS: BASO # 0.1 10^3/uL (0.0-0.2); BASO % 0.7 % (0.0-1.0); EOS # 0.1 10^3/uL (0.0-0.5); EOS % 0.9 % (0.0-3.0); HEMATOCRIT 47.2 % (36.0-47.0); HEMOGLOBIN 15.5 g/dl (12.0-15.5); LYMPH # 1.7 10^3/uL (1.5-5.0); LYMPH % 25.1 % (24.0-44.0); MEAN CORPUSCULAR HEMOGLOBIN 29.8 pg (27.0-33.0); MEAN CORPUSCULAR HGB CONC 32.8 g/dl (32.0-36.5); MEAN CORPUSCULAR VOLUME 90.8 fl (80.0-96.0); MONO # 0.7 10^3/uL (0.0-0.8); MONO % 10.9 % (0.0-5.0); NEUTROPHILS # 4.2 10^3/uL (1.5-8.5); NEUTROPHILS % 62.1 % (36.0-66.0); PLATELET COUNT, AUTOMATED 145 10^3/uL (150-450); WHITE BLOOD COUNT 6.8 10^3/uL (4.0-10.0)
[2019-12-02] MEDS ORDERED: MAG SULF 1GM/100ML (MAG RUN) 1 GM in IV 1 EA IV ONE (19:30)
[2019-12-02] MEDS ORDERED: dexameTHASONE 4 MG/ML 1ML VIAL (J1100 PER 1MG) IV ONE (19:30)
[2019-12-02] MEDS ORDERED: ONDANSETRON 4MG/2ML VIAL IV ONE (19:45)
--- NOTE | 2019-12-02 19:57 | HPEPDOC ---
[facility] Medical History & Physical Date of Admission Dec 02, 2019 Date of Service: Dec 02, 2019 History and Physical CHIEF COMPLAINT: Intractable headache HISTORY OF PRESENT ILLNESS: 54F PMHx SLE, CIVD, asthma, Ronda's thyroiditis & hereditary angioedema comes to ED with complaint of intractable headache. She tells me that the headache started in the morning and it was mild and progressively worsened throughout the day it was a 2-3 out of 10 and became a 10 out of 10 by the time she had to the hospital and it was the worse headache of her life. Now she feels the pain is better controlled about a 7 out of 10. Tells me she has gotten headaches to severe in the past. A few years ago she was diagnosed with aseptic meningitis but the headache different than this. Onset was gradual, pain is continuous, lasted for about 12 hours now. The pain is located throughout her head but located more severely around her temples and back of the head. Initially it was both temples but the pain on the right nondenominational has subsided and now it's mostly on the left nondenominational. She describes the pain as throbbing and does not radiate. It is not associated with light but loud sounds make it worse. She has not tried anything to alleviate the pain. The pain is associated with nausea and vomiting which started in worsened as the headaches intensity worsened. She tells me she often gets nauseous and sometimes throws up when she gets severe headaches. tells me that she has been attempting to get an MRI of her jaw and neck over the past year however her insurance has denied it. Tells me that her headaches seem to stem often from her neck and the pain in her jaw. In the ED patient was found to also have hypertensive urgency. Blood pressure improves after IV hydralazine. When discussed with the patient she tells me that usually when she is in pain such as headaches her blood pressure tends to go up. She has had a history of hypertension the past however over the past few years she's been taken off of all antihypertensives because she's been normotensive. PAST MEDICAL HISTORY: 1. Systemic Lupus Erythematosus on immunosuppression 2. Common Variable Immune Deficiency 3. Asthma 4. Ronda Thyroiditis 5. Hereditary Angioedema 6. Thromboembolic Stroke w/ history of PFO 7. 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 PFO repair 2. Cholecystectomy 3. Caesarean Section x3 4. Sinus Surgery x3 5. Lymph node biopsy SOCIAL HISTORY: Drinks alcohol socially Denies tobacco use Uses medical marijuana but denies illicit drug use FAMILY HISTORY: Grandmother diabetic Grandmother Ronda thyroiditis Mother and sister hereditary angioedema ALLERGIES: Please see below. REVIEW OF SYSTEMS: Constitutional: Per HPI. No sweating or weight loss. Jaw and neck pain since August. Eyes: When she gets headaches she gets pressure behind her eyes which she currently has HENT: No sore throat rest for HPI Cadiovascular: No Chest pain or palpitations Pulm: No SOB or cough Gastrointestinal: Per HPI. Patient also reports having chronic and bloody diarrhea for as long as she can remember 2-3 bouts daily Genitourinary: No dysuria or hematuria Musculoskeletal: No back pain or joint pain Skin: No rash or jaundice Neurological: No weakness but does feel tired HOME MEDICATIONS: Please see below. PHYSICAL EXAMINATION: Constitutional: Awake and alert, in moderate distress. Initially during the exam she was teary-eyed from her headache towards the end of the exam she appeared more comfortable and is answering all questions appropriately and was no longer teary-eyed. ENT: Sclera are clear. Mucosa is moist. Respiratory: Lungs CTA bilaterally. No respiratory distress. No use of accessory muscles. Cardiovascular: RRR S1 and S2 are normal, no murmur Gastrointestinal: Abdomen is soft, non distended, non tender, BS present. Musculoskeletal: No edema. No joint deformities Mental Status: A&O x3, normal affect Skin: Warm, dry Neurologic exam: mental status: The patient is awake, alert, oriented to name, location, and date. Cranial nerves: Pupils are equal, round, and reactive to light. Extraocular muscles intact. Visual sol full bilaterally. Smile is symmetrical. Tongue is midline. Intact sensation on both sides of face. Motor: At least 4+/5 in both upper and lower extremities without any drifting. Sensory: Intact to sensation bilaterally. There is no tenderness to palpation over her temples around the location where she reports to have her headache. Reflexes: Symmetrical, non-hyperreflexic. Not pathological. Kernig and Brudzinski both negative Coordination: [id number] grossly intact. LABORATORY DATA: See below. IMAGING: CT head 12/02/2019 impressions: No acute intracranial abnormality. No interval change when compared to the last head CT in 2017. MICROBIOLOGY: Please see below. ASSESSMENT/PLAN 54F PMHx SLE, CIVD, asthma, Ronda's thyroiditis & hereditary angioedema comes to ED with complaint of intractable headache. Patient was found to have hypertensive urgency and associated nausea and vomiting. Patient was admitted to the medical unit for observation. # Intractable headache: Pain control. IV fluids. Quiet time and dim lights. Given her history headaches seem related to the pain in her jaw and neck and that her specialists have been attempting to obtain MRIs of both in the outpatient setting I think it's reasonable to obtain MRIs given the severity of her headache and because she described as the worst headache of her life. # Hypertensive urgency: Difficult to know if her headache pain results in elevated blood pressure or whether her elevated blood pressure cause her headache. We'll treat both. She does have a remote history of hypertension however over the last few years she had become normotensive and was taken off her antihypertensives. IV hydralazine when necessary SBP >180. # Nausea vomiting: QTC okay. Nausea and headache likely relating to hypertensive urgency and headaches. Zofran when necessary, Reglan scheduled. IV fluids. # SLE: Continue Plaquenil, methylprednisone, colchicine. Patient receives weekly infusions of Benlysta. # History of asthma: Controlled. Inhalers when necessary # Chronic diarrhea: Tells me she's had this problem with loose stools for many decades and follows up with a GI doctor in [place]. Colonoscopy with biopsy ruled out ulcerative colitis. # DVT prophylaxis: lovenox [facility] Hospitalist Vital Signs Vital Signs Date Time Temp Pulse Resp B/P (MAP) Pulse Ox O2 Delivery O2 Flow Rate FiO2 12/02/19 19:01 89 20 156/78 (104) 96 Room Air 12/02/19 17:14 97.7 Laboratory Data Labs 24H Laboratory Tests 2 12/02/19 17:47: Thyroid Stimulating Hormone (TSH) 0.440, Free Thyroxine 0.67L 12/02/19 17:48: Immature Granulocyte % (Auto) 0.3, Neutrophils (%) (Auto) 62.1, Lymphocytes (%) (Auto) 25.1, Monocytes (%) (Auto) 10.9H, Eosinophils (%) (Auto) 0.9, Basophils (%) (Auto) 0.7, Neutrophils # (Auto) 4.2, Lymphocytes # (Auto) 1.7, Monocytes # (Auto) 0.7, Eosinophils # (Auto) 0.1, Basophils # (Auto) 0.1, Nucleated Red Blood Cells % (auto) 0.0 12/02/19 17:52: POC Glucose (Misc Panel) 98, POC Sodium (Misc Panel) 138, POC Potassium (Misc Panel) 3.2L, POC Chloride (Misc Panel) 98, POC Total CO2 (Misc Panel) 24.0, POC Blood Urea Nitrogen (Misc Panel 12, POC Ionized Calcium (Misc Panel) 4.7, POC Creatinine (Misc Panel) 0.8, POC Hematocrit (Misc Panel) 49.0 12/02/19 17:53: POC Lactate (Misc Panel) 2.01*H 12/02/19 17:57: POC Troponin I (Misc) 0.00 CBC/BMP Laboratory Tests 12/02/19 17:48 Home Medications Scheduled Acetaminophen (Tylenol) 325 Mg Tablet, 650 MG PO QWEEK TAKE BEFORE CUVITRU INFUSION ON TUESDAYS Alendronate Sodium (Alendronate Sodium) 70 Mg Tablet, 70 MG PO QWEEK TUESDAY Amoxicillin (Amoxicillin) 500 Mg Capsule, 500 MG PO DAILY Atovaquone (Atovaquone) 750 Mg/5 Ml Oral.susp, 10 ML PO DAILY Calcium Carbonate/Vitamin D3 (Calcium 600-Vit D3 200 Tablet) 1 Each Tablet, 1 TAB PO DAILY Cetirizine HCl (Cetirizine HCl) 10 Mg Tablet, 10 MG PO QHS Cyclosporine (Restasis) 0.05% Droperette, 1 DROP OU BID Diphenhydramine HCl (Diphenhydramine HCl) 25 Mg Capsule, 25 MG PO QWEEK TAKE BEFORE CUVITRU INFUSION ON TUESDAY Hydroxychloroquine Sulfate (Hydroxychloroquine Sulfate) 200 Mg Tablet, 200 MG PO QAM Hydroxychloroquine Sulfate (Hydroxychloroquine Sulfate) 200 Mg Tablet, 100 MG PO QHS Immun Glob G(IgG)/Gly/Iga Ov50 (Cuvitru 8 Gram/ 40 ml Vial) 8 Gm/40 Ml Vial, 8 GM SC QWEEK TUESDAY - INFUSE OVER 8 HOURS Lactobacillus Acidophilus (Probiotic) 1 Each Capsule, 1 CAP PO DAILY Methylprednisolone (Methylprednisolone) 4 Mg Tablet, 8 MG PO DAILY TAPERS UP FOR LUPUS FLARE UP Mirabegron (Myrbetriq) 50 Mg Tab.er.24h, 50 MG PO DAILY Mycophenolate Sodium (Mycophenolic Acid) 360 Mg Tablet.dr, 360 MG PO BID AM AND QHS Mycophenolate Sodium (Mycophenolic Acid) 360 Mg Tablet.dr, 720 MG PO DAILY AFTERNOON Ondansetron HCl (Ondansetron HCl) 4 Mg Tablet, 4 MG PO QWEEK TAKE BEFORE CUVITRU INFUSION ON TUESDAY Pantoprazole Sodium (Pantoprazole Sodium) 40 Mg Tablet.dr, 40 MG PO BID Pregabalin (Pregabalin) 150 Mg Capsule, 150 MG PO TID Roflumilast (Daliresp) 500 Mcg Tablet, 500 MCG PO QHS Thyroid ([place] Thyroid) 60 Mg Tablet, 60 MG PO DAILY Trazodone HCl (Trazodone HCl) 50 Mg Tablet, 100 MG PO QHS Scheduled PRN Acetaminophen (Tylenol) 325 Mg Tablet, 650 MG PO Q4H PRN for PAIN Albuterol Sulfate (Proair Hfa) 8.5 Gm Hfa.aer.ad, 2 PUFF INH Q6H PRN for SHORTNESS OF BREATH Colchicine (Colcrys) 0.6 Mg Tablet, 0.6 MG PO DAILY PRN for PLEURISY Hydrocodone/Acetaminophen (Hydrocodone-Acetamin 10-325 mg) 1 Each Tablet, 1 TAB PO Q6H PRN for PAIN Levalbuterol HCl (Levalbuterol HCl) 0.63 Mg/3 Ml Vial.neb, 0.63 MG INH Q8H PRN for SHORTNESS OF BREATH Simethicone (Simethicone) 80 Mg Tab.chew, 80 MG PO QID PRN for GAS PAIN Sumatriptan Succinate (Sumatriptan Succinate) 100 Mg Tablet, 100 MG PO BID PRN for MIGRAINE Allergies Coded Allergies: azithromycin (Verified Allergy, Unknown, hives, 02/01/19) A-FIB/CHADSVASC A-FIB History Current/History of A-Fib/PAF?: No ELIZABETH LEVINE MD Dec 02, 2019 19:57
[2019-12-02] MEDS ORDERED: ACETAMINOPHEN TAB 650MG DOSE (2X325MG) PO PRN (20:00)
[2019-12-02] MEDS ORDERED: MOM 30ML SUSPENSION UDC PO PRN (20:00)
[2019-12-02] MEDS ORDERED: HYDR-4517 PO (20:11)
[2019-12-02] MEDS ORDERED: MYCO1TAB2 PO (20:11)
[2019-12-02] MEDS ORDERED: PREG150C PO (20:11)
[2019-12-02] MEDS ORDERED: AMOX500C PO (20:12)
[2019-12-02] MEDS ORDERED: CETIRIZINE (ZyrTEC) 10 MG TAB PO SCH (21:00)
[2019-12-02] MEDS ORDERED: COLCHICINE 0.6 MG TAB PO PRN (21:00)
[2019-12-02] MEDS ORDERED: HYDROXYCHLOROQUINE 200 MG TAB PO SCH (21:00)
[2019-12-02] MEDS ORDERED: traZODone 50 MG TAB PO SCH (21:00)
[2019-12-02] MEDS ORDERED: SIMETHICONE 80 MG CHEW TAB PO PRN (21:00)
[2019-12-02] MEDS ORDERED: LEVALBUTEROL 1.25 MG/0.5 ML CONCENTRATE NEB INH PRN (21:00)
[2019-12-02] MEDS ORDERED: SUMAtriptan SUCCINATE 25 MG TAB PO PRN (21:00)
[2019-12-02] MEDS ORDERED: NORCO, ANEXSIA 5/325MG TABLET (HYDROcodone/ACETAMINOPHEN) PO PRN (21:15)
[2019-12-02] MEDS ORDERED: MORPHINE 2 MG/ML 1ML VIAL (J2270) IV PRN (21:15)
[2019-12-02] MEDS ORDERED: ONDANSETRON 4MG/2ML VIAL IV PRN (21:15)
[2019-12-02] MEDS ORDERED: KETOROLAC 30 MG/ML 1ML VIAL IV PRN (21:15)
[2019-12-02] MEDS: NS 1,000 ML IV SCH (21:39)
[2019-12-02 22:00] VITALS: BP 156/90
[2019-12-02] MEDS: PANTOPRAZOLE 40MG TAB (PROTONIX) PO SCH (22:35)
[2019-12-02] MEDS: METOCLOPRAMIDE INJ 10MG/2ML VIAL (J2765 PER 1) IV SCH (23:06)
[2019-12-03] VITALS: BP 150/82
[2019-12-03 04:00] VITALS: BP 136/84
[2019-12-03 05:35] LABS: HEMATOCRIT 43.5 % (36.0-47.0); MEAN CORPUSCULAR HEMOGLOBIN 29.5 pg (27.0-33.0); MEAN CORPUSCULAR HGB CONC 32.2 g/dl (32.0-36.5); MEAN CORPUSCULAR VOLUME 91.8 fl (80.0-96.0); PLATELET COUNT, AUTOMATED 144 10^3/uL (150-450); RED BLOOD COUNT 4.74 10^6/uL (4.00-5.40); WHITE BLOOD COUNT 4.2 10^3/uL (4.0-10.0)
[2019-12-03] MEDS: METOCLOPRAMIDE INJ 10MG/2ML VIAL (J2765 PER 1) IV SCH ×2 (06:06→12:44)
[2019-12-03 06:07] LABS: ALBUMIN 3.4 GM/DL (3.2-5.2); ALT/SGPT 38 U/L (12-78); BILIRUBIN,TOTAL 0.4 MG/DL (0.2-1.0); BLOOD UREA NITROGEN 10 MG/DL (7-18); CALCIUM LEVEL 7.8 MG/DL (8.5-10.1); CARBON DIOXIDE LEVEL 24 MEQ/L (21-32); CHLORIDE LEVEL 103 MEQ/L (98-107); CREATININE FOR GFR 0.62 MG/DL (0.55-1.30); GLOMERULAR FILTRATION RATE > 60.0 (>51); GLUCOSE, FASTING 100 MG/DL (70-100); POTASSIUM SERUM 4.3 MEQ/L (3.5-5.1); SODIUM LEVEL 136 MEQ/L (136-145); TOTAL PROTEIN 6.3 GM/DL (6.4-8.2)
[2019-12-03 08:00] VITALS: BP 122/70
[2019-12-03] MEDS ORDERED: ENOXAPARIN 40MG/0.4ML SYRINGE (J1650 PER 10MG) SC SCH (09:00)
[2019-12-03] MEDS ORDERED: HYDROXYCHLOROQUINE 200 MG TAB PO SCH (09:00)
[2019-12-03] MEDS ORDERED: THYROID 30 MG TAB PO SCH (09:00)
[2019-12-03] MEDS: PANTOPRAZOLE 40MG TAB (PROTONIX) PO SCH (10:13)
[2019-12-03] MEDS: NS 1,000 ML IV SCH (10:14)
[2019-12-03 12:00] VITALS: BP 144/80
[2019-12-03] MEDS ORDERED: AMLO1TAB24 PO (13:07)
--- NOTE | 2019-12-04 09:03 | ECGEPIP ---
[facility] - ED Test Date: 2019-12-02 Pat Name: YENI PITTMAN Department: Room: [place] [address] Gender: Female [employer]: BRENDA : 1965 Requested By: Wendy Cortez Order Number: [id number] Reading MD: Anali Bunn Measurements Intervals [place] Rate: 103 P: 55 HI: 126 QRS: 42 QRSD: 87 T: 6 QT: 347 QTc: 455 Interpretive Statements SINUS TACHYCARDIA POSSIBLE LEFT ATRIAL ENLARGEMENT NONSPECIFIC ST & T-WAVE ABNORMALITY ABNORMAL RHYTHM ECG DECREASED RATE 02/01/19 Electronically Signed on 12-04-2019 9:02:44 EDT by Anali Bunn
--- NOTE | 2019-12-04 17:57 | DS.PDOC ---
Discharge Summary General Date of Admission Dec 02, 2019 at 19:57 Date of Discharge Dec 03, 2019 at 14:00 Primary Care Physician: SONU CHURCH DO Attending Physician: MARINO MERCER MD Discharge Summary PROCEDURES PERFORMED DURING STAY: None. ADMITTING DIAGNOSES: 1. Hypertensive urgency 2. Severe headache 3. 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 Asthma. 8. Thromboembolic stroke with history of PFO 9. 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 SLE 2. CIVD 3. Ronda thyroiditis 4. Hereditary angioedema 5. Asthma 6. thromboembolic stroke with history of PFO. 7. 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 HISTORY OF PRESENT ILLNESS: 54 year old female patient who presented to the emergency department with intractable headaches which started this morning which initially was mild and later progressed in severity to 10 x 10 at the time of presenting to the hospital says it the worst headache of her life. She reports her pain to be located throughout her head but more localized and severe around her temples and back of head. And the pain is throbbing without any radiation and it is not associated with light, but loud sounds make it worse. She denies taking any medications. In the emergency department the patient was found to have an hypertensive urgency with blood pressure max was 226/124 mmHg and got better after IV hydralazine. She has a history of hypertension in the past but however for the past few years she has been off of all her antihypertensives because she is being normotensive. HOSPITAL COURSE: Patient was admitted to the hospital to observe overnight, her blood pressures improved and was consistent. She was stable overnight. She did report having some left temporal tenderness which improved since night and pain in her left TMJ joint but she was having prior to all this going on. Off not: To patient's adult school counselor Dr.Hiroshi Patterson from [place], and updated him about the patient's recent admission to the hospital. DISCHARGE MEDICATIONS: Please see below. ALLERGIES: Please see below. PHYSICAL EXAMINATION ON DISCHARGE: VITAL SIGNS: Please see below. Gen.: Patient is awake and alert , laying in bed, no apparent distress. 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 Respiratory: Clear breath sounds heard bilaterally. No use of accessory muscles, no rhonchi rales or gallops appreciated. Cardiac: S1-S2 heard normal, rhythm normal. No murmurs appreciated. GI: Abdomen soft, no distention no tenderness and bowel sounds are positive he did Extremities: No edema noted. ANESTHESIA RESIDENT: Patient is alert and oriented 3. LABORATORY DATA: Please see below. IMAGING: CT head without contrast: 12/02/2019: Reported as no acute intracranial abnormality, no interval changes compared to her last head CT in 2017. Portable chest x-ray: 12/02/2019: Reported as no acute cardiopulmonary processes appreciated. PROGNOSIS: Good ACTIVITY: As tolerated. DIET: Regular diet DISCHARGE PLAN: Follow-up with PCP in 3-5 days DISPOSITION: 01 Home, Self-Care. DISCHARGE INSTRUCTIONS: 1. Started her on amlodipine with holding parameters to take the medication if the blood pressure was more than 140 systolic ITEMS TO FOLLOWUP ON ON OUTPATIENT: 1. Follow-up with your PCP in 3-5 days 2. Follow-up with the adult school counselor. DISCHARGE CONDITION: Stable. TIME SPENT ON DISCHARGE: Greater than 30 minutes. Vital Signs/I&Os Vital Signs Date Time Temp Pulse Resp B/P (MAP) Pulse Ox O2 Delivery O2 Flow Rate FiO2 12/03/19 12:00 97.1 76 16 144/80 (101) 96 Room Air I&O- Last 24 Hours up to 6 AM 12/04/19 06:00 Intake Total 1780 ml Output Total 0 ml Balance 1780 ml Discharge Medications Scheduled Acetaminophen (Tylenol) 325 Mg Tablet, 650 MG PO QWEEK, (Reported) TAKE BEFORE CUVITRU INFUSION ON TUESDAYS Alendronate Sodium (Alendronate Sodium) 70 Mg Tablet, 70 MG PO QWEEK, (Reported) TUESDAY Amlodipine Besylate (Amlodipine Besylate) 5 Mg Tablet, 5 MG PO DAILY Amoxicillin (Amoxicillin) 500 Mg Capsule, 500 MG PO DAILY, (Reported) Atovaquone (Atovaquone) 750 Mg/5 Ml Oral.susp, 10 ML PO DAILY, (Reported) Calcium Carbonate/Vitamin D3 (Calcium 600-Vit D3 200 Tablet) 1 Each Tablet, 1 TAB PO DAILY, (Reported) Cetirizine HCl (Cetirizine HCl) 10 Mg Tablet, 10 MG PO QHS, (Reported) Cyclosporine (Restasis) 0.05% Droperette, 1 DROP OU BID, (Reported) Diphenhydramine HCl (Diphenhydramine HCl) 25 Mg Capsule, 25 MG PO QWEEK, (Reported) TAKE BEFORE CUVITRU INFUSION ON TUESDAY Hydroxychloroquine Sulfate (Hydroxychloroquine Sulfate) 200 Mg Tablet, 200 MG PO QAM, (Reported) Hydroxychloroquine Sulfate (Hydroxychloroquine Sulfate) 200 Mg Tablet, 100 MG PO QHS, (Reported) Immun Glob G(IgG)/Gly/Iga Ov50 (Cuvitru 8 Gram/ 40 ml Vial) 8 Gm/40 Ml Vial, 8 GM SC QWEEK, (Reported) TUESDAY - INFUSE OVER 8 HOURS Lactobacillus Acidophilus (Probiotic) 1 Each Capsule, 1 CAP PO DAILY, (Reported) Methylprednisolone (Methylprednisolone) 4 Mg Tablet, 8 MG PO DAILY, (Reported) TAPERS UP FOR LUPUS FLARE UP Mirabegron (Myrbetriq) 50 Mg Tab.er.24h, 50 MG PO DAILY, (Reported) Mycophenolate Sodium (Mycophenolic Acid) 360 Mg Tablet.dr, 360 MG PO BID, (Reported) AM AND QHS Mycophenolate Sodium (Mycophenolic Acid) 360 Mg Tablet.dr, 720 MG PO DAILY, (Reported) AFTERNOON Ondansetron HCl (Ondansetron HCl) 4 Mg Tablet, 4 MG PO QWEEK, (Reported) TAKE BEFORE CUVITRU INFUSION ON TUESDAY Pantoprazole Sodium (Pantoprazole Sodium) 40 Mg Tablet.dr, 40 MG PO BID, (Reported) Pregabalin (Pregabalin) 150 Mg Capsule, 150 MG PO TID, (Reported) Roflumilast (Daliresp) 500 Mcg Tablet, 500 MCG PO QHS, (Reported) Thyroid ([place] Thyroid) 60 Mg Tablet, 60 MG PO DAILY, (Reported) Trazodone HCl (Trazodone HCl) 50 Mg Tablet, 100 MG PO QHS, (Reported) Scheduled PRN Acetaminophen (Tylenol) 325 Mg Tablet, 650 MG PO Q4H PRN for PAIN, (Reported) Albuterol Sulfate (Proair Hfa) 8.5 Gm Hfa.aer.ad, 2 PUFF INH Q6H PRN for SHORTNESS OF BREATH, (Reported) Colchicine (Colcrys) 0.6 Mg Tablet, 0.6 MG PO DAILY PRN for PLEURISY, (Reported) Hydrocodone/Acetaminophen (Hydrocodone-Acetamin 10-325 mg) 1 Each Tablet, 1 TAB PO Q6H PRN for PAIN, (Reported) Levalbuterol HCl (Levalbuterol HCl) 0.63 Mg/3 Ml Vial.neb, 0.63 MG INH Q8H PRN for SHORTNESS OF BREATH, (Reported) Simethicone (Simethicone) 80 Mg Tab.chew, 80 MG PO QID PRN for GAS PAIN, (Reported) Sumatriptan Succinate (Sumatriptan Succinate) 100 Mg Tablet, 100 MG PO BID PRN for MIGRAINE, (Reported) Allergies Coded Allergies: azithromycin (Verified Allergy, Unknown, hives, 02/01/19) Divya Reynolds MD Dec 04, 2019 11:56
== END 2019-12-03 17:33 | disposition home or self-care (01) ==
LOC: M ED 17:13 → M ED INP 19:57 → INTOOBSV 19:57 → ENRESERV 20:21 → M PCU 21:52
PROVIDERS: ADMIT Family Medicine; ATTEND Family Medicine
DX: M32.9 Systemic lupus erythematosus, unspecified (principal); I16.0 Hypertensive urgency; R51.9 Headache, unspecified; D83.9 Common variable immunodeficiency, unspecified; E06.3 Autoimmune thyroiditis; J45.909 Unspecified asthma, uncomplicated; D84.1 Defects in the complement system; K21.9 Gastro-esophageal reflux disease without esophagitis; Z79.899 Other long term (current) drug therapy
CPT/HCPCS: 36415; 70450; 71045; 80047; 80053; 83605; 84439; 84443; 84484; 85025; 85027; 93005; 93041; 94760; 96361; 96372; 96374; 96375; 96376; 99285; J0360; J1100; J1200; J1650; J1885; J2270; J2405; J2765; J3475

== ENCOUNTER → 2019-12-13 | Outpatient (CLI) | payer OTHER ==
[~2019-12-13] MED LIST changes: +ALEN70TA74 PO; +AMLO1TAB24 PO; +AMOX500C PO; +ATOV5SUS PO; +HYDR-4517 PO; +MYRB50TA PO; +PREG150C PO; +TRAZ1TAB10 PO
[2019-12-13 14:09] LABS: BASO # 0.1 10^3/uL (0.0-0.2); BASO % 0.7 % (0.0-1.0); EOS # 0.1 10^3/uL (0.0-0.5); EOS % 1.1 % (0.0-3.0); HEMATOCRIT 44.7 % (36.0-47.0); HEMOGLOBIN 14.4 g/dl (12.0-15.5); LYMPH # 2.8 10^3/uL (1.5-5.0); LYMPH % 38.1 % (24.0-44.0); MEAN CORPUSCULAR HEMOGLOBIN 29.5 pg (27.0-33.0); MEAN CORPUSCULAR HGB CONC 32.2 g/dl (32.0-36.5); MEAN CORPUSCULAR VOLUME 91.6 fl (80.0-96.0); MONO # 0.8 10^3/uL (0.0-0.8); MONO % 11.2 % (0.0-5.0); NEUTROPHILS # 3.5 10^3/uL (1.5-8.5); NEUTROPHILS % 48.6 % (36.0-66.0); PLATELET COUNT, AUTOMATED 195 10^3/uL (150-450); RED BLOOD COUNT 4.88 10^6/uL (4.00-5.40); WHITE BLOOD COUNT 7.2 10^3/uL (4.0-10.0)
[2019-12-13 14:43] LABS: ALT/SGPT 48 U/L (12-78); BILIRUBIN,TOTAL 0.5 MG/DL (0.2-1.0); BLOOD UREA NITROGEN 14 MG/DL (7-18); CALCIUM LEVEL 9.6 MG/DL (8.5-10.1); CARBON DIOXIDE LEVEL 29 MEQ/L (21-32); CHLORIDE LEVEL 102 MEQ/L (98-107); CREATININE FOR GFR 0.77 MG/DL (0.55-1.30); FREE T4 0.64 NG/DL (0.76-1.46); GLOMERULAR FILTRATION RATE > 60.0 (>51); GLUCOSE, FASTING 100 MG/DL (70-100); POTASSIUM SERUM 3.7 MEQ/L (3.5-5.1); SODIUM LEVEL 137 MEQ/L (136-145); TOTAL PROTEIN 6.9 GM/DL (6.4-8.2)
[2019-12-13 14:58] LABS: ERYTHROCYTE SEDIMENTATION RATE 3 mm/hr (0-30)
== END ==
LOC: M PLALAB 11:17
PROVIDERS: ATTEND Physician Assistant
DX: M32.9 Systemic lupus erythematosus, unspecified (principal)

== ENCOUNTER → 2020-02-19 | Outpatient (CLI) | payer OTHER ==
[~2020-02-19] MED LIST changes: -ALEN70TA74 PO; +ALEN70TA82 PO
[2020-02-19 18:03] LABS: HEMATOCRIT 43.8 % (36.0-47.0); HEMOGLOBIN 14.1 g/dl (12.0-15.5); MEAN CORPUSCULAR HEMOGLOBIN 30.1 pg (27.0-33.0); MEAN CORPUSCULAR HGB CONC 32.2 g/dl (32.0-36.5); MEAN CORPUSCULAR VOLUME 93.6 fl (80.0-96.0); PLATELET COUNT, AUTOMATED 153 10^3/uL (150-450); RED BLOOD COUNT 4.68 10^6/uL (4.00-5.40); WHITE BLOOD COUNT 7.5 10^3/uL (4.0-10.0)
[2020-02-19 18:28] LABS: ALBUMIN 3.9 GM/DL (3.2-5.2); BILIRUBIN,DIRECT 0.1 MG/DL (0.0-0.2); BILIRUBIN,TOTAL 0.3 MG/DL (0.2-1.0)
== END ==
LOC: M PLALAB 15:41
PROVIDERS: ATTEND Internal Medicine Gastroenterology
DX: R74.8 Abnormal levels of other serum enzymes (principal)

== ENCOUNTER → 2020-02-19 | Outpatient (REF) | payer OTHER | LOC: M SFHCWAGY 18:14 | PROVIDERS: ATTEND Specialist | DX: Z01.419 Encounter for gynecological examination (general) (routine) without abnormal findings (principal) ==

== ENCOUNTER → 2020-02-22 | Outpatient (CLI) | payer OTHER ==
[~2020-02-22] MED LIST changes: +SIME80CH5 PO; -SIME80TA PO
--- NOTE | 2020-02-22 12:14 | REPMRS ---
Patient History The patient states she had a clinical breast exam in 2020. No known family history of cancer. 3D TOMOSYNTHESIS WAS PERFORMED. [facility] lifetime risk for breast cancer is 6.8%. [place] breast density d. Digital Woman Screen Mammo: February 22, 2020 - Exam #: [id number] Bilateral CC and MLO view(s) were taken. Technologist: Marlys Suarez, Technologist Prior study comparison: July 23, 2016, digital woman screen mammo performed at [facility]. January 16, 2015, digital woman screen mammo performed at [facility]. FINDINGS: The breast tissue is heterogeneously dense. This may lower the sensitivity of mammography. There has been no change in the appearance of the mammogram from the prior studies. There is a moderate amount of residual fibroglandular tissue which is fairly symmetric. There is no interval development of dominant mass, areas of architectural distortion, or clustered microcalcification typical of malignancy. Assessment: BI-RADS/ACR category 1 mammogram. Negative Mammogram. Recommendation Routine screening mammogram in 1 year (for women over age 40). This mammogram was interpreted with the aid of an FDA-approved computer-aided dectection system. Electronically Signed By: Elliott Milligan MD 02/22/20 [id number]
== END ==
LOC: M WHC 11:01
PROVIDERS: ATTEND Specialist
DX: Z12.31 Encounter for screening mammogram for malignant neoplasm of breast (principal)

== ENCOUNTER → 2020-03-27 | Outpatient (CLI) | payer OTHER ==
[2020-03-27 15:30] LABS: APPEARANCE, URINE CLEAR (CLEAR); BACTERIA, URINE AUTO NEGATIVE (NEGATIVE); BILIRUBIN, URINE AUTO NEGATIVE (NEGATIVE); BLOOD, URINE BLOOD NEGATIVE (NEGATIVE); COLOR, URINE STRAW (YELLOW); GLUCOSE, URINE (UA) AUTO NEGATIVE (NEGATIVE); KETONE, URINE AUTO NEGATIVE (NEGATIVE); LEUKOCYTE ESTERASE, URINE AUTO NEGATIVE (NEGATIVE); NITRITE, URINE AUTO NEGATIVE (NEGATIVE); PROTEIN, URINE AUTO NEGATIVE (NEGATIVE); RBC, URINE AUTO 0 /HPF (0-3); SPECIFIC GRAVITY URINE AUTO 1.005 (1.002-1.035); SQUAMOUS EPITHELIAL CELL UR AU 0 /HPF (0-6); UROBILINOGEN, URINE AUTO 0.2 mg/dL (0.0-2.0); WBC, URINE AUTO 0 /HPF (0-3)
[2020-03-27 15:34] LABS: BASO # 0.1 10^3/uL (0.0-0.2); BASO % 0.8 % (0.0-1.0); EOS # 0.1 10^3/uL (0.0-0.5); EOS % 1.3 % (0.0-3.0); HEMATOCRIT 38.5 % (36.0-47.0); HEMOGLOBIN 12.3 g/dl (12.0-15.5); LYMPH # 1.3 10^3/uL (1.5-5.0); LYMPH % 21.2 % (24.0-44.0); MEAN CORPUSCULAR HEMOGLOBIN 29.9 pg (27.0-33.0); MEAN CORPUSCULAR HGB CONC 31.9 g/dl (32.0-36.5); MEAN CORPUSCULAR VOLUME 93.4 fl (80.0-96.0); MONO # 0.7 10^3/uL (0.0-0.8); MONO % 10.4 % (2.0-8.0); NEUTROPHILS # 4.1 10^3/uL (1.5-8.5); NEUTROPHILS % 65.8 % (36.0-66.0); PLATELET COUNT, AUTOMATED 130 10^3/uL (150-450); RED BLOOD COUNT 4.12 10^6/uL (4.00-5.40); WHITE BLOOD COUNT 6.3 10^3/uL (4.0-10.0)
[2020-03-27 15:54] LABS: TOTAL PROTEIN,RANDOM URINE 5.7 MG/DL (0.0-12.0)
[2020-03-27 16:06] LABS: ALBUMIN 3.5 GM/DL (3.2-5.2); ALT/SGPT 55 U/L (12-78); BILIRUBIN,DIRECT < 0.1 MG/DL (0.0-0.2); BILIRUBIN,TOTAL 0.3 MG/DL (0.2-1.0); GLOMERULAR FILTRATION RATE > 60.0 (>51); TOTAL PROTEIN 6.5 GM/DL (6.4-8.2)
== END ==
LOC: M PLALAB 12:19
PROVIDERS: ATTEND Internal Medicine Rheumatology
DX: M32.9 Systemic lupus erythematosus, unspecified (principal); Z79.899 Other long term (current) drug therapy

== ENCOUNTER → 2020-04-03 | Outpatient (REF) | payer OTHER | LOC: M LAB REF 17:01 | PROVIDERS: ATTEND Physician Assistant | DX: J06.9 Acute upper respiratory infection, unspecified (principal) | CPT/HCPCS: 87070; U0003 ==

== ENCOUNTER → 2020-07-09 | Outpatient (REF) | payer OTHER ==
[2020-07-09 17:57] LABS: BASO % 0.8 % (0.0-1.0); EOS % 0.6 % (0.0-3.0); HEMATOCRIT 43.8 % (36.0-47.0); HEMOGLOBIN 13.9 g/dl (12.0-15.5); LYMPH # 1.2 10^3/uL (1.5-5.0); LYMPH % 23.2 % (24.0-44.0); MEAN CORPUSCULAR HEMOGLOBIN 30.1 pg (27.0-33.0); MEAN CORPUSCULAR HGB CONC 31.7 g/dl (32.0-36.5); MEAN CORPUSCULAR VOLUME 94.8 fl (80.0-96.0); MONO # 0.5 10^3/uL (0.0-0.8); MONO % 8.7 % (2.0-8.0); NEUTROPHILS # 3.5 10^3/uL (1.5-8.5); NEUTROPHILS % 66.1 % (36.0-66.0); PLATELET COUNT, AUTOMATED 141 10^3/uL (150-450); RED BLOOD COUNT 4.62 10^6/uL (4.00-5.40); WHITE BLOOD COUNT 5.3 10^3/uL (4.0-10.0)
[2020-07-09 18:17] LABS: ALT/SGPT 43 U/L (12-78); BILIRUBIN,TOTAL 0.4 MG/DL (0.2-1.0); BLOOD UREA NITROGEN 13 MG/DL (7-18); CALCIUM LEVEL 9.6 MG/DL (8.5-10.1); CARBON DIOXIDE LEVEL 29 MEQ/L (21-32); CHLORIDE LEVEL 104 MEQ/L (98-107); CREATININE FOR GFR 0.66 MG/DL (0.55-1.30); FREE T4 0.65 NG/DL (0.76-1.46); GLOMERULAR FILTRATION RATE > 60.0 (>51); GLUCOSE, FASTING 98 MG/DL (70-100); POTASSIUM SERUM 4.1 MEQ/L (3.5-5.1); SODIUM LEVEL 140 MEQ/L (136-145); TOTAL PROTEIN 7.2 GM/DL (6.4-8.2)
== END ==
LOC: M PLALAB 17:08 → M LAB REF 17:08
PROVIDERS: ATTEND Physician Assistant
DX: R63.4 Abnormal weight loss (principal)

== ENCOUNTER → 2021-02-09 | Outpatient (CLI) | payer OTHER ==
[2021-02-09 18:18] LABS: BASO # 0.1 10^3/uL (0.0-0.2); BASO % 0.7 % (0.0-1.0); EOS # 0.1 10^3/uL (0.0-0.5); EOS % 0.7 % (0.0-3.0); HEMATOCRIT 44.3 % (36.0-47.0); HEMOGLOBIN 14.3 g/dl (12.0-15.5); LYMPH # 1.1 10^3/uL (1.5-5.0); LYMPH % 15.4 % (24.0-44.0); MEAN CORPUSCULAR HEMOGLOBIN 30.1 pg (27.0-33.0); MEAN CORPUSCULAR HGB CONC 32.3 g/dl (32.0-36.5); MEAN CORPUSCULAR VOLUME 93.3 fl (80.0-96.0); MONO # 0.5 10^3/uL (0.0-0.8); MONO % 6.5 % (2.0-8.0); NEUTROPHILS # 5.4 10^3/uL (1.5-8.5); PLATELET COUNT, AUTOMATED 187 10^3/uL (150-450); RED BLOOD COUNT 4.75 10^6/uL (4.00-5.40); WHITE BLOOD COUNT 7.1 10^3/uL (4.0-10.0)
[2021-02-09 18:45] LABS: ALBUMIN 3.9 GM/DL (3.2-5.2); ALT/SGPT 35 U/L (12-78); BILIRUBIN,TOTAL 0.4 MG/DL (0.2-1.0); BLOOD UREA NITROGEN 18 MG/DL (7-18); CALCIUM LEVEL 8.9 MG/DL (8.5-10.1); CARBON DIOXIDE LEVEL 29 MEQ/L (21-32); CHLORIDE LEVEL 105 MEQ/L (98-107); CREATININE FOR GFR 0.65 MG/DL (0.55-1.30); FREE T4 0.65 NG/DL (0.76-1.46); GLOMERULAR FILTRATION RATE > 60.0 (>51); GLUCOSE, FASTING 101 MG/DL (70-100); POTASSIUM SERUM 4.1 MEQ/L (3.5-5.1); SODIUM LEVEL 139 MEQ/L (136-145); THYROID STIMULATING HORMONE 0.308 uIU/ML (0.358-3.740); TOTAL 25(OH) VITAMIN D 22.6 NG/ML (30.0-100.0); TOTAL PROTEIN 6.7 GM/DL (6.4-8.2)
[2021-02-09 18:47] LABS: FOLATE 8.2 NG/ML; VITAMIN B12 LEVEL 440 PG/ML
== END ==
LOC: M PLALAB 14:41
PROVIDERS: ATTEND Family Medicine
DX: E03.9 Hypothyroidism, unspecified (principal)

== ENCOUNTER → 2021-02-09 | Outpatient (CLI) | payer OTHER ==
[2021-02-09 18:09] LABS: APPEARANCE, URINE CLEAR (CLEAR); BACTERIA, URINE AUTO NEGATIVE (NEGATIVE); BILIRUBIN, URINE AUTO NEGATIVE (NEGATIVE); BLOOD, URINE BLOOD NEGATIVE (NEGATIVE); COLOR, URINE STRAW (YELLOW); GLUCOSE, URINE (UA) AUTO NEGATIVE (NEGATIVE); KETONE, URINE AUTO NEGATIVE (NEGATIVE); LEUKOCYTE ESTERASE, URINE AUTO NEGATIVE (NEGATIVE); NITRITE, URINE AUTO NEGATIVE (NEGATIVE); PROTEIN, URINE AUTO NEGATIVE (NEGATIVE); RBC, URINE AUTO 0 /HPF (0-3); SPECIFIC GRAVITY URINE AUTO 1.003 (1.002-1.035); SQUAMOUS EPITHELIAL CELL UR AU 0 /HPF (0-6); UROBILINOGEN, URINE AUTO 0.2 mg/dL (0.0-2.0); WBC, URINE AUTO 0 /HPF (0-3)
[2021-02-09 18:16] LABS: BASO % 0.5 % (0.0-1.0); EOS # 0.1 10^3/uL (0.0-0.5); EOS % 1.1 % (0.0-3.0); HEMATOCRIT 44.8 % (36.0-47.0); HEMOGLOBIN 14.3 g/dl (12.0-15.5); LYMPH # 1.2 10^3/uL (1.5-5.0); LYMPH % 16.3 % (24.0-44.0); MEAN CORPUSCULAR HEMOGLOBIN 29.9 pg (27.0-33.0); MEAN CORPUSCULAR HGB CONC 31.9 g/dl (32.0-36.5); MEAN CORPUSCULAR VOLUME 93.7 fl (80.0-96.0); MONO # 0.6 10^3/uL (0.0-0.8); MONO % 7.5 % (2.0-8.0); NEUTROPHILS # 5.4 10^3/uL (1.5-8.5); NEUTROPHILS % 74.1 % (36.0-66.0); PLATELET COUNT, AUTOMATED 187 10^3/uL (150-450); RED BLOOD COUNT 4.78 10^6/uL (4.00-5.40); WHITE BLOOD COUNT 7.3 10^3/uL (4.0-10.0)
[2021-02-09 18:45] LABS: CREATININE, URINE < 13.0 MG/DL; MALB URINE SIEMENS < 5.0 MG/L
== END ==
LOC: M PLALAB 14:38
PROVIDERS: ATTEND Internal Medicine Rheumatology
DX: M32.9 Systemic lupus erythematosus, unspecified (principal); Z79.899 Other long term (current) drug therapy

== ENCOUNTER → 2021-03-02 | Outpatient (CLI) | payer OTHER ==
[2021-03-02 17:49] LABS: C REACTIVE PROTEIN QUANTITATIV < 0.30 MG/DL (0.00-0.30); FREE T4 0.76 NG/DL (0.76-1.46); RHEUMATOID FACTOR QUANT < 10.0 IU/ML (<15.0); THYROID STIMULATING HORMONE 0.061 uIU/ML (0.358-3.740); URIC ACID 4.1 MG/DL (2.6-6.0)
== END ==
LOC: M PLALAB 14:41
PROVIDERS: ATTEND Physician Assistant
DX: M25.541 Pain in joints of right hand (principal); E03.9 Hypothyroidism, unspecified

== ENCOUNTER → 2021-03-02 | Outpatient (CLI) | payer OTHER | LOC: M WHC 14:17 | PROVIDERS: ATTEND Physician Assistant | DX: Z13.820 Encounter for screening for osteoporosis (principal); M85.89 Other specified disorders of bone density and structure, multiple sites ==

== ENCOUNTER → 2021-04-13 | Outpatient (CLI) | payer OTHER | LOC: M RAD 14:36 | PROVIDERS: ATTEND Physician Assistant | DX: N83.209 Unspecified ovarian cyst, unspecified side (principal) ==

== ENCOUNTER 2021-11-18 17:18 | Emergency (ER) | payer MEDICARE, BC ==
[~2021-11-18] VITALS: Ht 165.1 cm; Wt 58.6 kg
[2021-11-18 20:09] LABS: BASO % 0.6 % (0.0-1.0); EOS % 0.1 % (0.0-3.0); HEMATOCRIT 44.2 % (36.0-47.0); HEMOGLOBIN 13.9 g/dl (12.0-15.5); LYMPH # 0.7 10^3/uL (1.5-5.0); LYMPH % 9.7 % (24.0-44.0); MEAN CORPUSCULAR HEMOGLOBIN 30.4 pg (27.0-33.0); MEAN CORPUSCULAR HGB CONC 31.4 g/dl (32.0-36.5); MEAN CORPUSCULAR VOLUME 96.7 fl (80.0-96.0); MONO # 0.3 10^3/uL (0.0-0.8); MONO % 4.5 % (2.0-8.0); NEUTROPHILS # 5.8 10^3/uL (1.5-8.5); NEUTROPHILS % 84.2 % (36.0-66.0); PLATELET COUNT, AUTOMATED 114 10^3/uL (150-450); RED BLOOD COUNT 4.57 10^6/uL (4.00-5.40); WHITE BLOOD COUNT 6.9 10^3/uL (4.0-10.0)
[2021-11-18 20:24] LABS: INR 0.79; PROTHROMBIN TIME 11.2 SECONDS (12.5-14.5)
[2021-11-18 20:25] LABS: PARTIAL THROMBOPLASTIN TIME 24.7 SECONDS (24.8-34.2)
[2021-11-18] MEDS ORDERED: ACETAMINOPHEN 325 MG TAB PO ONE (20:40)
[2021-11-18] MEDS ORDERED: NS 1,000 ML IV ONE (20:40)
[2021-11-18] MEDS ORDERED: PROMETHAZINE 25MG/ML 1ML VIAL IV ONE (20:40)
[2021-11-18 20:49] LABS: BLOOD UREA NITROGEN 15 MG/DL (7-18); CALCIUM LEVEL 9.4 MG/DL (8.5-10.1); CARBON DIOXIDE LEVEL 27 MEQ/L (21-32); CHLORIDE LEVEL 106 MEQ/L (98-107); CREATININE FOR GFR 0.65 MG/DL (0.55-1.30); GLOMERULAR FILTRATION RATE > 60.0 (>51); GLUCOSE, FASTING 113 MG/DL (70-100); POTASSIUM SERUM 4.3 MEQ/L (3.5-5.1); SODIUM LEVEL 139 MEQ/L (136-145)
[2021-11-18] MEDS ORDERED: ISOVUE-370 76% 100ML VIAL As Ordered ONE (20:54)
[2021-11-18 21:31] LABS: CPK CREATINE PHOSPHOKINASE 61 U/L (26-192)
[2021-11-18] MEDS ORDERED: ONDANSETRON 4MG 2ML VIAL IV ONE (22:35)
[2021-11-18] MEDS ORDERED: NORCO, ANEXSIA 5/325MG TABLET (HYDROcodone/ACETAMINOPHEN) PO ONE (22:35)
[2021-11-18 23:20] VITALS: BP 153/79
[2021-11-19] MEDS ORDERED: NORCO 5/325MG TABLET (HOME DOSE PACK) PO ONE (00:20)
== END 2021-11-19 00:46 | disposition home or self-care (01) ==
LOC: M ED 17:18
DX: R22.1 Localized swelling, mass and lump, neck (principal); G43.909 Migraine, unspecified, not intractable, without status migrainosus; Z86.16 Personal history of COVID-19; I10 Essential (primary) hypertension; E78.5 Hyperlipidemia, unspecified; Z86.73 Personal history of transient ischemic attack (TIA), and cerebral infarction without residual deficits; M32.9 Systemic lupus erythematosus, unspecified; E03.9 Hypothyroidism, unspecified; J45.909 Unspecified asthma, uncomplicated; Z87.01 Personal history of pneumonia (recurrent); Z79.899 Other long term (current) drug therapy; Z88.1 Allergy status to other antibiotic agents
CPT/HCPCS: 70450; 70498; 71275; 80047; 80048; 82550; 83605; 84484; 85025; 85610; 85730; 87040; 93005; 93041; 93971; 94760; 96361; 96374; 96375; 99285; J2405; J2550; Q9967

== ENCOUNTER → 2021-12-11 | Outpatient (CLI) | payer MEDICARE, BC ==
[2021-12-11 21:49] LABS: FREE T4 0.86 NG/DL (0.76-1.46); THYROID STIMULATING HORMONE 0.078 uIU/ML (0.358-3.740)
== END ==
LOC: M PLALAB 16:16
PROVIDERS: ATTEND Internal Medicine Endocrinology, Diabetes & Metabolism
DX: E03.9 Hypothyroidism, unspecified (principal)

== ENCOUNTER → 2022-01-22 | Outpatient (REF) | payer MEDICARE, BC | LOC: M SFHCWAGY 13:09 | PROVIDERS: ATTEND Specialist | DX: Z12.4 Encounter for screening for malignant neoplasm of cervix (principal); Z77.9 Other contact with and (suspected) exposures hazardous to health | CPT/HCPCS: 87624; G0123 ==

== ENCOUNTER → 2022-08-30 | Outpatient (CLI) | payer MEDICARE, BC ==
[~2022-08-30] MED LIST changes: +DIPH-435 PO; -DIPH25CA32 PO; -HYDR200T3 PO; +HYDR200T46 PO
== END ==
LOC: M WHC 11:42
PROVIDERS: ATTEND Physician Assistant
DX: Z12.31 Encounter for screening mammogram for malignant neoplasm of breast (principal)